=== PATIENT | female | born 1955 | race Caucasian/White ===

== ENCOUNTER 2020-11-14 01:11 | Inpatient (IN) ==
[2020-11-14] MEDS ORDERED: morphine 4 MG/ML VIAL IV ONE (02:03)
[2020-11-14 02:22] LABS: POC Blood Urea Nitrogen 14 mg/dL (6-20); POC CO2 29 mmol/L (22-30); POC Calcium, Ionized 1.19 mmEq/L (1.16-1.32); POC Chloride 98 mEq/L (96-108); POC Creatinine 0.8 mg/dL (0.6-1.2); POC Glucose, Random 139 mg/dL (70-105); POC Hematocrit 24 % (36-48); POC Potassium 3.9 mEql/L (3.3-5.1); POC Sodium 137 mEq/L (133-145)
[2020-11-14] MEDS ORDERED: 0.9 % SODIUM CHLORIDE 1,000 ML IV SCH ×2 (02:30→02:45)
--- NOTE | 2020-11-14 02:36 | Emergency Department Note ---
HPI General Chief complaint: Extremity Injury, Lower Stated complaint: ground level fall Time Seen by Provider: 11/14/20 01:25 Source: patient and EMS Mode of arrival: EMS Limitations: no limitations History of Present Illness HPI Narrative: Narrative: Patient is a 65-year-old female status post right hip arthroplasty last month who presents with chief complaint of fall and leg pain. Patient had a mechanical fall earlier today, landing on her right leg. She denies hitting her head or loss of consciousness. Her primary complaint at this time is just pain and inability to get back up. She had to call EMS to get her off the floor and she was unable to bear weight on her right leg. Otherwise denies any other complaint such as headache, neck pain, numbness or tingling, chest pain, shortness of breath, nausea, vomiting, abdominal pain, changes in bowel movements or urinary symptoms. Related Data Home Medications Medication Instructions Recorded Confirmed insulin lispro [Humalog KwikPen 12 unit SUBCUT DAILY@1230 08/17/20 10/26/20 Insulin] insulin lispro [Humalog KwikPen 20 unit SUB-Q BID@08,1730 08/17/20 10/26/20 Insulin] amitriptyline 50 mg PO DAILY 10/26/20 10/26/20 insulin glargine [Lantus Solostar 42 unit SUBCUT HS 10/26/20 10/26/20 U-100 Insulin] Previous Rx's Medication Instructions Recorded aspirin 81 mg PO BID #60 tab 10/27/20 oxycodone 10 mg PO Q4H PRN #60 tab 10/27/20 atorvastatin 20 mg tablet 20 mg PO QHS #90 tab 11/03/20 gabapentin 600 mg tablet 600 mg PO TID PRN #90 tab 11/03/20 tizanidine 4 mg tablet 4 mg PO Q6HP PRN #60 tab 11/08/20 Allergies Allergy/AdvReac Type Severity Reaction Status Date / Time Erythromycin Base Allergy Intermediate Hives Verified 11/14/20 01:19 [From E-Mycin] Penicillins Allergy Intermediate Hives Verified 11/14/20 01:19 hydrocodone Allergy Mild Rash Verified 11/14/20 01:19 metformin Allergy Mild Hives Verified 11/14/20 01:19 phenazopyridine AdvReac Intermediate Other Verified 11/14/20 01:19 [From Pyridium] lorazepam [From Ativan] AdvReac Mild Agitated Verified 11/14/20 01:19 Zolpidem [From Ambien] AdvReac Mild Agitated Verified 11/14/20 01:19 Review of Systems ROS ROS Narrative: Narrative: All systems ED: reviewed and negative except as stated. [facility] Narrative Patient History Narrative: Narrative: Medical/Surgical/Family History All Active Problems Femur fracture, right (Acute) SI (sacroiliac) joint inflammation (Acute) Right hip pain (Acute) Weight loss (Chronic) Abdominal pain (Chronic) Adenomatous colon polyp (Chronic) Mild chronic gastritis (Chronic) Constipation (Chronic) Hemorrhoids (Chronic) History of colonoscopy (Chronic 12/05/16) Delayed gastric emptying (Chronic) Gastric ulcer (Chronic) History of esophagogastroduodenoscopy (EGD) (Chronic 11/30/16) Non-compliant patient (Chronic) Non compliance w medication regimen (Chronic) Squamous cell carcinoma (Chronic) Actinic keratosis (Chronic) Lumbar disc disease (Chronic) Cervical radiculopathy (Chronic) 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) Back pain (Chronic) Diabetes mellitus (Chronic) OCD (obsessive compulsive disorder) (Chronic) GERD (gastroesophageal reflux disease) (Chronic) Major depressive disorder (Chronic) DDD (degenerative disc disease), lumbar (Chronic) Interstitial cystitis (Chronic) Right hip pain (Chronic) Medication monitoring encounter (Chronic) Expressive language disorder (Chronic) Ptosis, left eyelid (Chronic) Hypertriglyceridemia (Chronic) Essential hypertension (Chronic) Diabetes mellitus with diabetic polyneuropathy (Chronic) Diabetes mellitus type II, uncontrolled (Chronic) Abnormal finding on mammography (Chronic) Chronic hyponatremia (Chronic) Abnormal weight loss (Chronic) Nicotine addiction (Chronic) Kidney stones (Chronic) Left flank pain (Chronic) Microscopic hematuria (Chronic) Medical History Abdominal pain Abnormal finding on mammography Abnormal weight loss Actinic keratosis Adenomatous colon polyp Articular disc disorder of both temporomandibular joints Back pain Cervical radiculopathy Chronic hyponatremia Constipation DDD (degenerative disc disease), lumbar Delayed gastric emptying Diabetes mellitus Diabetes mellitus type II, uncontrolled Diabetes mellitus with diabetic polyneuropathy Essential hypertension Expressive language disorder Gastric ulcer GERD (gastroesophageal reflux disease) Hemorrhoids Hypertriglyceridemia Interstitial cystitis Kidney stones bilateral Left flank pain Lumbar disc disease Major depressive disorder Medication monitoring encounter Microscopic hematuria Mild chronic gastritis Nicotine addiction OCD (obsessive compulsive disorder) Ptosis, left eyelid Right hip pain Squamous cell carcinoma Weight loss Surgical History History of appendectomy History of back surgery 1991 History of bilateral breast reduction surgery History of bladder suspension procedure History of cataract surgery History of section History of colonoscopy (12/05/16) History of esophagogastroduodenoscopy (EGD) (11/30/16) History of hip replacement History of hysterectomy due to benign tumor History of oophorectomy History of shoulder surgery 2009 Status post surgical manipulation of ankle joint 1997 Family History Mother Prescription drug abuse CVA (cerebral vascular accident) Father Esophageal cancer Hypertension Social History Smoking Status: Current every day smoker Alcohol Intake Frequency: holiday/special occasion only Substance Use: does not use Exam Narrative Narrative: Narrative: General Limitations: no limitations Head Head: Present atraumatic and normocephalic Eye Eye: Present normal appearance, PERRL and EOMI; Absent scleral icterus and conjunctival injection ENT ENT: Present normal oropharynx and mucous membranes moist Neck Neck: Present full ROM and trachea midline; Absent tenderness and lymp hadenopathy Chest Chest: Present symmetric chest wall rise Respiratory Respiratory: Present normal lung sounds bilaterally; Absent respiratory distress, rales/crackles, wheezes, stridor and accessory muscle use Cardiovascular Cardiovascular: Present regular rate and normal rhythm; Absent systolic murmur and diastolic murmur Adbominal Abdominal: Present soft; Absent tenderness, guarding, rebound, rigidity and mass Extremities Extremities: Present tenderness, normal capillary refill and other (Significant tenderness to the right thigh/femur area. Improves with rest in the leg back onto the bed. Neurovascular intact distally. Hip and pelvis appear to be s table overall. No knee injury noted.); Absent full ROM, pedal edema, pretibial edema, calf tenderness and cyanosis Back Back: Absent CVA tenderness (R), CVA tenderness (L) and spinous process tenderness Neurological Neurological: Present alert and oriented X3 Psychiatric Psychiatric: Present normal affect and normal mood Skin Skin: Present warm (WNL) and dry Course Vital Signs Vital signs: Vital Signs Temperature 98.0 F 11/14/20 01:12 Pulse Rate 101 H 11/14/20 01:12 Respiratory Rate 16 11/14/20 01:12 Blood Pressure 123/52 11/14/20 01:12 Pulse Oximetry (%) 94 11/14/20 01:12 Temperature 98.0 F 11/14/20 01:12 Pulse Rate 103 H 11/14/20 01:17 Respiratory Rate 16 11/14/20 01:12 Blood Pressure 123/52 11/14/20 01:17 Pulse Oximetry (%) 94 11/14/20 01:17 MDM MDM Narrative Medical decision making narrative: Narrative: Patient is a 65-year-old female presented with chief complaint of fall and leg pain. Unfortunately, does appear the patient has fractured her femur just below her right hip arthroplasty. Vital signs are stable, with her initial tachycardia likely secondary to pain improved with just rest in the emergency department and pain medication. No other significant traumatic injuries were noted, no spinal be to admit for further work-up and management of her femur fracture. I did discuss case with orthopedics, who recommended admission to the hospitalist. I discussed case the hospitalist who agreed to the plan at this time and asked for transition orders. Patient is agreeable to the plan of admission has no further concerns or questions. Lab Data Result diagrams: 11/14/20 02:17 Labs: Lab Results 11/14/20 Range/Units 02:17 POC Hct 24 L (36-48) % POC Sodium 137 (133-145) mEq/L POC Potassium 3.9 (3.3-5.1) mEql/L POC Chloride 98 (96-108) mEq/L POC Total CO2 29 (22-30) mmol/L POC BUN 14 (6-20) mg/dL POC Creatinine 0.8 (0.6-1.2) mg/dL POC Glucose 139 H (70-105) mg/dL POC WB Ioniz Calcium 1.19 (1.16-1.32) mmEq/L ED POC Tests ED POC Tests: [place] - SARS Antigen Negative Discharge Plan Patient/Caregiver Discharge Instructions Pt seen by PMO MANAGER/PA only: No Clinical Impression: Femur fracture, right Patient Disposition: Xfer As Inpt ([facility]) Follow up with: Armas,Mala M, DIRECTOR [employer] [Primary Care Provider] - Prescriptions: No Action atorvastatin 20 mg tablet 20 mg PO QHS Qty: 90 RF: 0 gabapentin 600 mg tablet 600 mg PO TID PRN (Reason: Pain) Qty: 90 RF: 1 tizanidine 4 mg tablet 4 mg PO Q6HP PRN (Reason: muscle spasticity) Qty: 60 RF: 2 insulin lispro [Humalog KwikPen Insulin] 100 unit/mL Insulin Pen 12 unit SUBCUT DAILY@1230 RF: 0 insulin lispro [Humalog KwikPen Insulin] 100 unit/mL insulin pen 20 unit SUB-Q BID@08,1730 RF: 0 amitriptyline 50 mg tablet 50 mg PO DAILY RF: 0 Lantus Solostar U-100 Insulin 100 unit/mL (3 mL) insulin pen 42 unit SUBCUT HS RF: 0 aspirin 81 mg tablet,delayed release (DR/EC) 81 mg PO BID Qty: 60 RF: 0 oxycodone 10 mg tablet 10 mg PO Q4H PRN (Reason: pain) Qty: 60 RF: 0
[2020-11-14] MEDS ORDERED: ONDANSETRON 4 MG/2 ML VIAL IV PRN ×2 (02:37→09:02)
[2020-11-14] MEDS ORDERED: HYDROmorphone 1 MG/ML SYRINGE IV ONE (02:47)
[2020-11-14 03:32] LABS: Basophils # (Auto) 0.06 K/mcL (0.00-0.20); Basophils % (Auto) 0.4 % (0.0-2.0); Eosinophils # (Auto) 0.22 K/mcL (0.00-0.70); Eosinophils % (Auto) 1.5 % (0.0-7.0); Hematocrit 26.6 % (36.0-48.0); Hemoglobin 8.1 g/dL (12.0-15.0); Lymphocytes # (Auto) 1.16 K/mcL (1.50-4.80); Lymphocytes % (Auto) 7.6 % (15.0-49.0); Mean Cell Volume 83.1 fL (80.0-100.0); Mean Corpuscular HGB Conc 30.5 g/dL (31.0-36.0); Monocytes # (Auto) 0.67 K/mcL (0.10-0.90); Monocytes % (Auto) 4.4 % (1.0-12.0); Neutrophils % (Auto) 86.1 % (38.0-78.0); Platelet Count 267 K/mcL (140-440); Red Cell Distribution Width 16.7 % (11.5-14.5); WBC 15.2 K/mcL (4.5-11.0)
[2020-11-14] MEDS: morphine 4 MG/ML VIAL IV PRN ×2 (03:44→07:41)
--- NOTE | 2020-11-14 04:55 | XRay Report ---
CLINICAL INFORMATION: fall COMPARISON: 10/26/2020 FINDINGS: Bilateral hip prostheses are anatomically aligned. No evidence of loosening or infection. An oblique fracture of the proximal femoral diaphysis, in the region of the femoral stem, is appreciated. No significant angulation deformity. Stomach is incompletely included on the film but appears markedly dilated. IMPRESSION: Oblique displaced fracture of the proximal femoral diaphysis at the level of the prosthetic femoral stem Marked gastric dilatation. Interpreted and Authenticated by: Yan Cody 11/14/20
--- NOTE | 2020-11-14 04:57 | XRay Report ---
CLINICAL INFORMATION: fall COMPARISON: None. FINDINGS: Spiral fracture of the proximal femoral diaphysis, at the level of the prosthetic femoral stem, is appreciated. The distal fragment is displaced laterally 2 cm and anteriorly 1.6 cm. No significant angulation deformity. Right hip prostheses is anatomically aligned. Moderate patellofemoral and tibiofemoral degenerative change. Soft tissue swelling in the upper thigh appreciated. IMPRESSION: Spiral displaced fracture of the distal femoral diaphysis Moderate patellofemoral and tibiofemoral degeneration Interpreted and Authenticated by: Yan Cody 11/14/20
[2020-11-14] MEDS ORDERED: 0.9 % SODIUM CHLORIDE 10 ML SYRINGE IV SCH (06:00)
[2020-11-14] MEDS ORDERED: tiZANidine 4 MG TABLET PO PRN (08:20)
--- NOTE | 2020-11-14 08:36 | Internal Med History&Physical ---
HPI History of Present Illness Patient information: Note initiated : 11/14/20 at 8:27 am Service Date, if different from initiated Date: [] Patient: Masha Berger a 65 y/o F admitted on 11/14/20 for ground level fall. Chief Complaint: [Fall with hip fracture ] History of present illness: Ms. Berger is a 65 year old F with type 2 diabetes mellitus, insulin-dependent, mixed dyslipidemia, recent right hip fracture status post ORIF, presenting with fall and refracturing of her right femur. Patient had an episode for 2 and half weeks ago status post right hip/femur ORIF. She was doing well after the surgery until last night when she sustained another fall at home when she was walking and all of a sudden her legs just gave out. She denies any loss of consciousness. She was taken back to our hospital ED and x-ray of the hip and right leg shows displaced fracture of the right femoral diaphysis at the level of the prosthetic femoral stem. She is currently complaining of 10 out of 10, constant, sharp pain localized in her right lateral thigh. Denies any shortness of breath or chest pain. Denies any lethargy or confusions. Constitutional Constitutional: Absent chills, excessive sweating, fatigue, fever(s) and weakness EENT Eyes: Absent blurry vision, change in vision, loss of vision and other visual disturbances Ears: Absent decreased hearing and tinnitus Nose, mouth and throat: Absent abnormal hearing, dry mouth, headache(s), nasal congestion and sore throat Cardiovascular Cardiovascular: Absent chest pain, chest pain at rest, edema, irregular heart rhythm and palpatations Respiratory Respiratory: Absent cough, dyspnea and wheezing Gastrointestinal Gastrointestinal: Absent abdominal pain, constipation, diarrhea, nausea and vomiting Musculoskeletal Musculoskeletal: Present limited range of motion; Absent back pain, deformity, muscle cramps, muscle weakness and numbness Additional comments: Right lateral thigh pain Active and passive range of motion's of the right leg limited by pain Integumentary Integumentary: Absent lesions, rash and wounds Neurological Neurological: Absent focal weakness, headache(s) and numbness Psychiatric Psychiatric: Absent anxiety, depression and hallucinations PFSH PFSH All Active Problems (Updated 11/14/20 @ 08:32 by Scot Tipton MD) Hypochromic anemia (Acute) Femur fracture, right (Acute) SI (sacroiliac) joint inflammation (Acute) Right hip pain (Acute) Weight loss (Chronic) Abdominal pain (Chronic) Adenomatous colon polyp (Chronic) Mild chronic gastritis (Chronic) Constipation (Chronic) Hemorrhoids (Chronic) History of colonoscopy (Chronic 12/05/16) Delayed gastric emptying (Chronic) Gastric ulcer (Chronic) History of esophagogastroduodenoscopy (EGD) (Chronic 11/30/16) Non-compliant patient (Chronic) Non compliance w medication regimen (Chronic) Squamous cell carcinoma (Chronic) Actinic keratosis (Chronic) Lumbar disc disease (Chronic) Cervical radiculopathy (Chronic) 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) Back pain (Chronic) Diabetes mellitus (Chronic) OCD (obsessive compulsive disorder) (Chronic) GERD (gastroesophageal reflux disease) (Chronic) Major depressive disorder (Chronic) DDD (degenerative disc disease), lumbar (Chronic) Interstitial cystitis (Chronic) Right hip pain (Chronic) Medication monitoring encounter (Chronic) Expressive language disorder (Chronic) Ptosis, left eyelid (Chronic) Hypertriglyceridemia (Chronic) Essential hypertension (Chronic) Diabetes mellitus with diabetic polyneuropathy (Chronic) Diabetes mellitus type II, uncontrolled (Chronic) Abnormal finding on mammography (Chronic) Chronic hyponatremia (Chronic) Abnormal weight loss (Chronic) Nicotine addiction (Chronic) Kidney stones (Chronic) Left flank pain (Chronic) Microscopic hematuria (Chronic) Medical History (Updated 11/14/20 @ 08:32 by Scot Tipton MD) Abdominal pain Abnormal finding on mammography Abnormal weight loss Actinic keratosis Adenomatous colon polyp Articular disc disorder of both temporomandibular joints Back pain Cervical radiculopathy Chronic hyponatremia Constipation DDD (degenerative disc disease), lumbar Delayed gastric emptying Diabetes mellitus Diabetes mellitus type II, uncontrolled Diabetes mellitus with diabetic polyneuropathy Essential hypertension Expressive language disorder Gastric ulcer GERD (gastroesophageal reflux disease) Hemorrhoids Hypertriglyceridemia Interstitial cystitis Kidney stones bilateral Left flank pain Lumbar disc disease Major depressive disorder Medication monitoring encounter Microscopic hematuria Mild chronic gastritis Nicotine addiction OCD (obsessive compulsive disorder) Ptosis, left eyelid Right hip pain Squamous cell carcinoma Weight loss Surgical History History of appendectomy History of back surgery 1992 History of bilateral breast reduction surgery History of bladder suspension procedure History of cataract surgery History of section History of colonoscopy (12/05/16) History of esophagogastroduodenoscopy (EGD) (11/30/16) History of hip replacement History of hysterectomy due to benign tumor History of oophorectomy History of shoulder surgery 2009 Status post surgical manipulation of ankle joint 1997 Family History Mother Prescription drug abuse CVA (cerebral vascular accident) Father Esophageal cancer Hypertension Social History marital status: occupational status: disabled physical activity: none alcohol intake frequency: holiday/special occasion only substance use type: does not use MEDS/ALLERGIES Home Medications and Allergies Home Medications Medication Instructions Recorded Confirmed Type insulin lispro [Humalog KwikPen 12 unit SUBCUT DAILY@1230 08/17/20 11/14/20 Hi story Insulin] insulin lispro [Humalog KwikPen 20 unit SUB-Q BID@08,1730 08/17/20 11/14/20 History Insulin] amitriptyline 50 mg PO DAILY 10/26/20 11/14/20 History insulin glargine [Lantus Solostar 42 unit SUBCUT DAILY 10/26/20 11/14/20 History U-100 Insulin] aspirin 81 mg PO BID #60 tab 10/27/20 11/14/20 Rx oxycodone 10 mg PO Q4H PRN #60 tab 10/27/20 11/14/20 Rx atorvastatin 20 mg tablet 20 mg PO QHS #90 tab 11/03/20 11/14/20 Rx tizanidine 4 mg tablet 4 mg PO Q6HP PRN #60 tab 11/08/20 11/14/20 Rx gabapentin 1,200 mg PO TID PRN 11/14/20 11/14/20 History Allergies Allergy/AdvReac Type Severity Reaction Status Date / Time Erythromycin Base Allergy Intermediate Hives Verified 11/14/20 01:19 [From E-Mycin] Penicillins Allergy Intermediate Hives Verified 11/14/20 01:19 hydrocodone Allergy Mild Rash Verified 11/14/20 01:19 metformin Allergy Mild Hives Verified 11/14/20 01:19 phenazopyridine AdvReac Intermediate Other Verified 11/14/20 01:19 [From Pyridium] lorazepam [From Ativan] AdvReac Mild Agitated Verified 11/14/20 01:19 Zolpidem [From Ambien] AdvReac Mild Agitated Verified 11/14/20 01:19 EXAM Constitutional Vitals: Temp Pulse Resp BP Pulse Ox 36.8 C 98 H 20 108/62 93 11/14/20 07:43 11/14/20 07:43 11/14/20 07:43 11/14/20 07:43 11/14/20 07:43 General appearance: cooperative and no acute distress Head Head exam: Present atraumatic and normocephalic Eye Eye exam: Present EOMI and PERRL ENT ENT exam: Present mucous membranes moist, normal exam and normal external ear exam Neck Neck exam: Present normal inspection; Absent lymphadenopathy, tenderness and thyromegaly Respiratory Respiratory exam: Absent accessory muscle use, respiratory distress and wheezes Cardiovascular Cardiovascular exam: Present normal rate and rhythm; Absent JVD GI/Abdominal GI/Abdominal exam: Present normal bowel sounds and soft; Absent organomegaly and tenderness Extremities Exam Extremities exam: Present normal capillary refill and tenderness; Absent full ROM and normal inspection Additional comments: Right lateral side with surgical incisions, well-healed with Band-Aids in place. Tenderness to palpations of the right lateral hip. Active and passive range of motion limited by pain. Neurological Exam Neurological exam: Present alert, CN II-XII intact and oriented X3; Absent motor sensory deficit Psychiatric Psychiatric exam: Present normal affect and normal mood; Absent anxious and depressed Skin Skin exam: Present dry and intact DATA Data Completed and Pending Labs: Labs from last 24 hours 11/14/20 11/14/20 11/14/20 04:30 02:17 02:17 WBC 15.2 H RBC 3.20 L Hgb 8.1 L Hct 26.6 L POC Hct 24 L MCV 83.1 MCH 25.3 L MCHC 30.5 L RDW 16.7 H Plt Count 267 MPV 9.0 Neut % (Auto) 86.1 H Lymph % (Auto) 7.6 L [place] % (Auto) 4.4 Eos % (Auto) 1.5 Baso % (Auto) 0.4 Lymph # (Auto) 1.16 L [place] # (Auto) 0.67 Eos # (Auto) 0.22 Baso # (Auto) 0.06 Absolute Neutrophils 13.06 H POC Sodium 137 POC Potassium 3.9 POC Chloride 98 POC Total CO2 29 POC BUN 14 POC Creatinine 0.8 POC Glucose 139 H POC WB Ioniz Calcium 1.19 Urine Color Pending Urine Appearance Pending Urine pH Pending Ur Specific [place] Pending Urine Protein Pending Urine Glucose (UA) Pending Urine Ketones Pending Urine Occult Blood Pending Urine Nitrate Pending Urine Bilirubin Pending Urine Urobilinogen Pending Ur Leukocyte Esterase Pending A/P Assessment and plan (1) Femur fracture, right: Status: Acute (2) Hypertriglyceridemia: Status: Chronic (3) Diabetes mellitus with diabetic polyneuropathy: Status: Chronic Qualifiers: Diabetes mellitus type: 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 Fall with right femur re-fracture around the prosthetic site: Admit to inpatient med surg Orthopedic surgeon consulted NPO [id number]@100cc/hr Bed rest Dilaudid 1mg IV q2hr PRN severe pain Physical therapy evaluation and treatment Occupational therapy evaluation and treatment 2. T2DM: HgA1c Hold any oral hypoglycemics Hold any scheduled insulin given NPO status Correctional scale insulin q6hr Accu Chek q6hr Hypoglycemia protocol NPO [id number]@100cc/hr 3. Mixed dyslipidemia: Continue statin therapy 4. Hypochromic anemia: cbc w/ auto diff in AM to trend H/H, transfuse pRBC if hemoglobin <7.0, active bleeding, or symptomatic GI ppx: not currently indicated DVT ppx: SCDs Code status: Full Prognosis: stable Disposition: inpatient med surg Time Spent With Patient Time: Total time spent is greater than 50% in coordination of care (as documented) at patient's floor/unit and/or counseling patient: Total time spent with greater than 50% in coordination of care (as documented) at patient's floor/unit and/or counseling patient:: 15 - 24 minutes QUALITY Stroke Symptom Onset Unknown: No VTE Deep Vein Thrombosis/Pulmonary Embolism Present on Admission: No
[2020-11-14] MEDS ORDERED: AMITRIPTYLINE 25 MG TABLET PO SCH (09:00)
[2020-11-14] MEDS ORDERED: DEXTROSE 50% 50 ML VIAL IV PRN (09:02)
[2020-11-14] MEDS ORDERED: DEXTROSE 31 GM ORAL.SUSP PO PRN (09:02)
[2020-11-14] MEDS: DEXTROSE 5%-LR 1,000 ML IV SCH ×2 (09:12→18:59)
[2020-11-14] MEDS: HYDROmorphone 1 MG/ML SYRINGE IV PRN ×5 (09:13→18:42)
[2020-11-14] MEDS: DOCUSATE SODIUM 100 MG CAPSULE PO SCH ×2 (09:16→20:46)
[2020-11-14] MEDS: INSULIN LISPRO 1 UNIT/0.01 ML UNIT SQ SCH ×2 (11:39→17:25)
[2020-11-14] MEDS: 0.9 % SODIUM CHLORIDE 10 ML SYRINGE IV SCH ×4 (14:00→20:51)
[2020-11-14] MEDS ORDERED: HYDROmorphone 1 MG/ML SYRINGE IV PRN (19:04)
[2020-11-14] MEDS ORDERED: ORTHO PREOP PAIN ORDER PER RX PO SCH (19:15)
[2020-11-14] MEDS ORDERED: TEMAZEPAM 15 MG CAPSULE PO PRN (20:10)
[2020-11-14] MEDS ORDERED: KETOROLAC 15 MG/ML VIAL IV PRN (20:10)
[2020-11-14] MEDS ORDERED: ceFAZolin 2 GM in DEXTROSE 5% IN WATER 50 ML IV ONE (20:35)
[2020-11-14] MEDS: oxyCODONE HCL 5 MG TABLET PO PRN (20:45)
[2020-11-14] MEDS: ATORVASTATIN 20 MG TABLET PO SCH (20:46)
[2020-11-14] MEDS: SENNOSIDES 1 TABLET PO SCH (20:46)
[2020-11-14] MEDS: ONDANSETRON 4 MG/2 ML VIAL IV PRN (20:50)
[2020-11-14] MEDS ORDERED: ceFAZolin 1 GM VIAL IV ONE (21:00)
[2020-11-14] MEDS ORDERED: ATORVASTATIN 20 MG TABLET PO SCH (21:00)
[2020-11-14] MEDS ORDERED: PROMETHAZINE 25 MG/ML VIAL IV PRN (23:15)
[2020-11-14] MEDS ORDERED: PROMETHAZINE 25 MG/ML VIAL ONE (23:19)
[2020-11-15] MEDS ORDERED: PANTOPRAZOLE 40 MG VIAL IV ONE ×2 (00:35→00:39)
[2020-11-15] MEDS: INSULIN LISPRO 1 UNIT/0.01 ML UNIT SQ SCH ×6 (00:45→23:53)
[2020-11-15] MEDS: HYDROmorphone 1 MG/ML SYRINGE IV PRN ×5 (00:47→21:58)
[2020-11-15 01:30] LABS: Hematocrit 19.4 % (36.0-48.0); Hemoglobin 7.9 g/dL (12.0-15.0)
--- NOTE | 2020-11-15 02:43 | XRay Report ---
CLINICAL INFORMATION: abd distention/ NG tube placement COMPARISON: 09/10/2017 FINDINGS: NG tube is in the proximal gastric body. Stomach is markedly dilated with mild small bowel dilatation. Colon is incompletely imaged. Unremarkable. No free air or soft tissue mass IMPRESSION: NG tube overlying the proximal gastric body. Marked gastric dilatation. Mild ileus Interpreted and Authenticated by: Yan Cody 11/15/20
[2020-11-15] MEDS: DEXTROSE 5%-LR 1,000 ML IV SCH ×2 (05:15→16:19)
[2020-11-15] MEDS: 0.9 % SODIUM CHLORIDE 10 ML SYRINGE IV SCH ×5 (05:22→21:53)
[2020-11-15] MEDS ORDERED: ceFAZolin 2 GM in DEXTROSE 5% IN WATER 50 ML IV SCH (06:00)
[2020-11-15 07:54] LABS: Blood Urea Nitrogen 13 mg/dL (8-23); Calcium 8.6 mg/dL (8.6-10.4); Carbon Dioxide 34 mmol/L (22-30); Chloride 99 mmol/L (96-108); Glomerular Filtration Rate 76; Glucose 170 mg/dL (70-105)
[2020-11-15] MEDS ORDERED: 0.9 % SODIUM CHLORIDE 250 ML IV SCH ×2 (08:00→08:45)
[2020-11-15 08:07] LABS: Basophils # (Auto) 0.05 K/mcL (0.00-0.20); Basophils % (Auto) 0.6 % (0.0-2.0); Eosinophils # (Auto) 0.05 K/mcL (0.00-0.70); Eosinophils % (Auto) 0.6 % (0.0-7.0); Hematocrit 25.2 % (36.0-48.0); Hemoglobin 7.4 g/dL (12.0-15.0); Lymphocytes # (Auto) 1.16 K/mcL (1.50-4.80); Lymphocytes % (Auto) 12.9 % (15.0-49.0); Mean Cell Volume 84.6 fL (80.0-100.0); Mean Corpuscular HGB Conc 29.4 g/dL (31.0-36.0); Mean Platelet Volume 8.8 fL (7.4-10.4); Monocytes # (Auto) 0.47 K/mcL (0.10-0.90); Monocytes % (Auto) 5.2 % (1.0-12.0); Neutrophils % (Auto) 80.7 % (38.0-78.0); Platelet Count 320 K/mcL (140-440); RBC 2.98 M/mcL (4.00-5.20); Red Cell Distribution Width 16.9 % (11.5-14.5)
[2020-11-15] MEDS: LORazepam 2 MG/ML VIAL IV PRN ×2 (08:45→21:24)
[2020-11-15] MEDS ORDERED: VANCOMYCIN 1,500 MG in 0.9 % SODIUM CHLORIDE 500 ML IV SCH (09:15)
--- NOTE | 2020-11-15 10:12 | Internal Med Progress Note ---
SUBJECTIVE Subjective Patient information: Note initiated : 11/15/20 at 10:07 am Service Date, if different from initiated Date: [] Patient: Masha Berger a 65 y/o F admitted on 11/14/20 for ground level fall. Chief Complaint: [] Interval history: Ms. Berger is a 65 year old F with type 2 diabetes mellitus, insulin-dependent, mixed dyslipidemia, recent right hip fracture status post ORIF, presenting with fall and refracturing of her right femur. Patient had an episode for 2 and half weeks ago status post right hip/femur ORIF. She was doing well after the surgery until last night when she sustained another fall at home when she was walking and all of a sudden her legs just gave out. She denies any loss of consciousness. She was taken back to our hospital ED and x- ray of the hip and right leg shows displaced fracture of the right femoral diaphysis at the level of the prosthetic femoral stem. She is currently complaining of 10 out of 10, constant, sharp pain localized in her right lateral thigh. Denies any shortness of breath or chest pain. Denies any lethargy or confusions. 5/4-overnight distended abdomen with multiple episodes of emesis. NG tube placed with over 2000 cc bilious output. Abdominal imaging reveals ileus pat tern. Hemoglobin down to 7.9. Started on PPI due to blood-tinged gastric aspirate. Surgery today. Repeat hemoglobin down to 7.4. 2 units PRBC transfusion ordered. Will review postop. Family at bedside. Discussed plan of treatment. Constitutional Vitals: Vital Signs Temp Pulse Resp BP Pulse Ox 98.2 F 100 H 20 139/75 88 L 11/15/20 08:00 11/15/20 08:00 11/15/20 08:00 11/15/20 08:00 11/15/20 08:00 Period Temp Pulse Resp BP Sys/Persaud Pulse Ox Last 24 Hr 97.9 F-98.6 F 87-104 12-20 104-139/48-75 88-93 Intake and Output 11/14/20 11/15/20 11/15/20 21:59 05:59 13:59 Intake Total 1333 1050 Output Total 750 2725 Balance 583 -1675 Weight 89.539 kg NG tube in place, anxious Nondistended abdomen Right hip pain at surgery site Nonlabored breathing Intake & Output: Intake & Output 11/14/20 11/15/20 11/15/20 21:59 05:59 13:59 Intake Total 1333 1050 Output Total 750 2725 Balance 583 -1675 Weight 89.539 kg Intake: IV 1333 1000 Sodium Chloride 0.9% 1,000 ml @ 355 20 mls/hr IV .Q24H [facility] Rx#: [id number] Dextrose 5%-Lactated Ringers 1, 978 1000 000 ml @ 100 mls/hr IV .Q10H [facility] Rx#:[id number] Oral 50 Tube Feeding 0 Output: Gastric Drainage 1875 Left Nare 1875 Urine Catheter Amount 700 375 Emesis 50 475 Other: Meal Dinner Percent of Meal Consumed 50% Feeding Ability Independent Urine Appearance Clear Clear Uretheral (Petit) Clear Urine Color Bright Yellow Dark Yellow Uretheral (Petit) Bright Yellow Urine Odor Normal Uretheral (Petit) Normal # Emeses 1 OBJ DATA Labs CBC & Chem 7: 11/15/20 06:24 11/15/20 06:24 Labs: Abnormal Lab Results 11/15/20 11/15/20 11/15/20 06:24 06:24 00:49 WBC RBC 2.98 L Hgb 7.4 L 7.9 L Hct 25.2 L 19.4 L* POC Hct MCH 24.8 L MCHC 29.4 L RDW 16.9 H Neut % (Auto) 80.7 H Lymph % (Auto) 12.9 L Lymph # (Auto) 1.16 L Absolute Neutrophils Carbon Dioxide 34 H Anion Gap 7.0 L Glucose 170 H POC Glucose 11/14/20 11/14/20 02:17 02:17 WBC 15.2 H RBC 3.20 L Hgb 8.1 L Hct 26.6 L POC Hct 24 L MCH 25.3 L MCHC 30.5 L RDW 16.7 H Neut % (Auto) 86.1 H Lymph % (Auto) 7.6 L Lymph # (Auto) 1.16 L Absolute Neutrophils 13.06 H Carbon Dioxide Anion Gap Glucose POC Glucose 139 H Meds: Medications Acetaminophen (Acetaminophen 325 Mg Tablet) 650 mg PO Q6HP PRN; Protocol PRN Reason: Per Pain Protocol/Fever > 101 Amitriptyline HCl (Amitriptyline 25 Mg Tablet) 50 mg PO DAILY [facility] Atorvastatin Calcium (Atorvastatin 20 Mg Tablet) 20 mg PO QHS [facility] Last Admin: 11/14/20 20:46 Dose: 20 mg Documented by: Dextrose (Dextrose 50% 50 Ml Vial) 0 ml IV UD PRN PRN Reason: Hypoglycemia Diagnostic Test (Pha) (Accu-Chek 1 Each Strip) 1 each FS Q6 [facility] Last Admin: 11/15/20 05:55 Dose: 1 each Documented by: Docusate Sodium (Docusate Sodium 100 Mg Capsule) 100 mg PO BID [facility] Last Admin: 11/14/20 20:46 Dose: 100 mg Documented by: Glucose (Dextrose 31 Gm Oral.Susp) 15 gm PO PRN PRN PRN Reason: Hypoglycemia Hydromorphone HCl (Hydromorphone 1 Mg/Ml Syringe) 1 mg IV Q2HP PRN; Protocol PRN Reason: Per Pain Protocol Last Admin: 11/15/20 09:20 Dose: 1 mg Documented by: Hydromorphone HCl (Hydromorphone 1 Mg/Ml Syringe) 2 mg IV Q2HP PRN; Protocol PRN Reason: Per Pain Protocol Last Admin: 11/15/20 05:17 Dose: 2 mg Documented by: Dextrose/Lactated Ringer's (Dextrose 5%-Lactated Ringers) 1,000 mls @ 100 mls/hr IV .Q10H [facility] Last Admin: 11/15/20 05:15 Dose: 100 mls/hr Documented by: Cefazolin Sodium 2 gm/ (Dextrose) 50 mls @ 100 mls/hr IV PREOP [facility]; Protocol Stop: 11/15/20 15:00 Sodium Chloride (Sodium Chloride 0.9%) 250 mls @ 20 mls/hr IV .[id number] [facility] Stop: 11/15/20 20:29 Last Admin: 11/15/20 09:23 Dose: 20 mls/hr Documented by: Sodium Chloride (Sodium Chloride 0.9%) 250 mls @ 20 mls/hr IV .[id number] [facility] Stop: 11/15/20 21:14 Vancomycin HCl 1,500 mg/ (Sodium Chloride) 500 mls @ 333.3 mls/hr IV PREOP [facility]; Protocol Stop: 11/15/20 10:46 Insulin Human Lispro (Insulin Lispro 1 Unit/0.01 Ml Unit) 0 unit SQ Q6 [facility]; Protocol Last Admin: 11/15/20 05:57 Dose: Not Given Documented by: Ketorolac Tromethamine (Ketorolac 15 Mg/Ml Vial) 15 mg IV Q6HP PRN PRN Reason: Per Pain Protocol Stop: 11/16/20 20:10 Last Admin: 11/14/20 20:44 Dose: 15 mg Documented by: Lorazepam (Lorazepam 2 Mg/Ml Vial) 0.5 mg IV Q6HP PRN PRN Reason: ANXIETY/SEDATION Last Admin: 11/15/20 08:45 Dose: 0.5 mg Documented by: Ondansetron HCl (Ondansetron 4 Mg/2 Ml Vial) 4 mg IV Q6HP PRN PRN Reason: Nausea And Vomiting Last Admin: 11/14/20 20:50 Dose: 4 mg Documented by: Oxycodone HCl (Oxycodone Hcl 5 Mg Tablet) 5 mg PO Q4HP PRN; Protocol PRN Reason: Per Pain Protocol Last Admin: 11/14/20 20:45 Dose: 5 mg Documented by: Pantoprazole Sodium (Pantoprazole 40 Mg Tablet) 40 mg PO BIDAC [facility] Promethazine HCl (Promethazine 25 Mg/Ml Vial) 12.5 mg IV Q6HP PRN PRN Reason: Nausea And Vomiting Last Admin: 11/14/20 23:20 Dose: 12.5 mg Documented by: Senna (Sennosides 1 Tablet) 2 tab PO HS [facility] Last Admin: 11/14/20 20:46 Dose: 2 tab Documented by: Sodium Chloride (0.9 % Sodium Chloride 10 Ml Syringe) 10 ml IV Q8 [facility] Last Admin: 11/15/20 05:22 Dose: Not Given Documented by: Sodium Chloride (0.9 % Sodium Chloride 10 Ml Syringe) 10 ml IV Q8 [facility] Last Admin: 11/15/20 05:23 Dose: Not Given Documented by: Temazepam (Temazepam 15 Mg Capsule) 15 mg PO HSP PRN PRN Reason: Insomnia Last Admin: 11/14/20 22:04 Dose: 15 mg Documented by: Tizanidine HCl (Tizanidine 4 Mg Tablet) 4 mg PO Q6HP PRN PRN Reason: muscle spasticity Trazodone HCl (Trazodone Hcl 50 Mg Tablet) 50 mg PO HSP PRN PRN Reason: Insomnia A/P Narrative A/P Narrative: * Right femur fracture/fall-operative intervention today, pain management per orthopedics * Ileus/recurrent nausea currently n.p.o./NG tube decompression * Preop risk evaluation * Blood loss anemia-treated PRBC/IV PPI. Recommend outpatient GI follow-up for upper endoscopy if bleeding resolves. Else inpatient GI consult * Type II DM continue sliding scale insulin, CCD post op * Hyperlipidemia on statin * History of chronic pain continue prior home medications postop * Prophylaxis SCDs * Full code Plan * Review postop * PRBC transfusion * IV PPI * Pre-existing medical condition management home medications * Postop care per orthopedics * Early mobilization * DVT prophylaxis * Case management coordinate SNF transfer Time Spent With Patient Time: Total time spent is greater than 50% in coordination of care (as documented) at patient's floor/unit and/or counseling patient: QUALITY Stroke Symptom Onset Unknown: No VTE Deep Vein Thrombosis/Pulmonary Embolism Present on Admission: No
[2020-11-15] MEDS: AMITRIPTYLINE 25 MG TABLET PO SCH (10:18)
[2020-11-15] MEDS: DOCUSATE SODIUM 100 MG CAPSULE PO SCH ×2 (10:18→21:36)
--- NOTE | 2020-11-15 10:22 | Consultation ---
DATE OF CONSULTATION: 11/14/2020 CHIEF COMPLAINT: Right periprosthetic fracture. HISTORY OF PRESENT ILLNESS: The patient is a 65-year-old patient, who had a fall injuring the right leg. Immediate pain, swelling, and deformity were encountered. The patient was seen in the emergency room where she was appropriately diagnosed with a periprosthetic fracture. She is about 3 weeks out from a total hip arthroplasty. She was doing well up until that time. She does have neuropathy and multiple other health problems. The patient is a 65-year-old female on early 11/14, today, she fell and injured the leg. She is a type 2 diabetic, insulin-dependent. She has been unable to move the leg without severe pain. REVIEW OF SYSTEMS: Constitutional symptoms, she denies chills, fever, no nausea, but severe pain is her main complaint. Other review of systems, vision is unchanged, though her vision is not good. Cardiovascular exam, she has no chest pain or shortness of breath today. She does have peripheral neuropathy as a constant problem. She does not note any weakness or headaches. PAST MEDICAL HISTORY: Her medical problems are quite extensive. These include anemia; right hip fracture; sacroiliac inflammation; right ankle pain; weight loss, which is chronic; abdominal pain chronic in nature; constipation. She has had lumbar disk disease, squamous cell carcinoma, delayed gastric emptying, gastric ulcers, reflux, obsessive compulsive disorder, major depressive disorder, degenerative joint disease, chronic narcotic use because of chronic pain, type 2 diabetic, and nicotine addiction, chronic . PAST SURGICAL HISTORY: She has had multiple surgical history include appendectomy, back surgery in 1991, breast reduction surgery, colonoscopy in 2016, hip replacement more recently, hysterectomy, shoulder surgery in 2008, surgical manipulation of an ankle joint in 1997. FAMILY HISTORY: CVA with the mother. Father, esophageal cancer and hypertension. SOCIAL HISTORY: She is . Occupational status, disabled. Physical activity minimal. Alcohol intake only infrequently, holidays. Substance use, she does smoke. ALLERGIES: IT IS QUITE EXTENSIVE. HER ALLERGIES INCLUDE WHICH SHE LIST HYDROCODONE, METFORMIN, LORAZEPAM, ERYTHROMYCIN, PENICILLIN. MOST OF THESE ARE REACTIONS, NOT TRUE ALLERGIES. MEDICATIONS: Include insulin 42 units subcutaneous daily, amitriptyline 50 mg p.o. every day, aspirin 81 mg p.o. day, oxycodone 10 mg every 4 hours #60 tablets that she has been given, atorvastatin 20 mg at nighttime, ____ 4 mg p.o. every 6 hours, gabapentin 1200 mg p.o. t.i.d. PHYSICAL EXAMINATION: GENERAL: Alert, cooperative, in quite a bit of pain, somewhat tearful. HEENT: Normocephalic, atraumatic. Eyes are equal. ENT clear without respiratory distress. NECK: Supple and nontender. RESPIRATORY: A little tachycardic at 12, but able to take a deep breath. CARDIOVASCULAR: Regular rate, tachycardic rate, with increased JVD. GASTROINTESTINAL: Abdomen is soft, nontender. EXTREMITIES: Has a right leg shortened, flexed at 45 degrees with external rotation, seems to be the most comfortable position for the patient with brisk capillary refill into the foot. She has peripheral neuropathy, which is decreased globally in both feet. NEUROLOGIC: Her cranial nerves are intact. She is alert and oriented x3. Mood and affect appropriate. She is in good spirits overall for the pain that she has been in. No open wounds around the hip and a prior scar that is well healed on the right hip. LABORATORY DATA: Obtained in the emergency room, which include white cell count of 15.2, most likely from the stress. She is anemic with a hematocrit of 26.4. Her x-rays of the right femur demonstrate a periprosthetic femur fracture with a well-positioned total hip in place. I talked with Dr. Sullivan, he is willing to do the case as this was clearly new that he might be able to remove the stem and place another stem that would bypass the fracture. He has met with the patient, and she agrees with the plan. I have ordered for pain medication for tonight and help her get by until he assumes all care. RB:[email or web address] Job ID: [id number] Doc ID: [id number] Neptali Antunez MD
[2020-11-15] MEDS ORDERED: VASOPRESSIN 20 UNIT/ML VIAL ONE (10:30)
[2020-11-15] MEDS ORDERED: ONDANSETRON 4 MG/2 ML VIAL ONE (10:30)
[2020-11-15] MEDS ORDERED: fentaNYL 100 MCG/2 ML VIAL IV ONE (10:30)
[2020-11-15] MEDS ORDERED: DEXAMETHASONE 10 MG/ML VIAL ONE (10:30)
[2020-11-15] MEDS ORDERED: KETAMINE 50 MG/ML ML ONE (10:30)
[2020-11-15] MEDS ORDERED: HYDROmorphone 1 MG/ML SYRINGE ONE (10:30)
[2020-11-15] MEDS ORDERED: GLYCOPYRROLATE 0.2 MG/ML VIAL IV ONE (10:30)
[2020-11-15] MEDS ORDERED: PROPOFOL 200 MG/20 ML VIAL IV ONE (10:30)
[2020-11-15] MEDS ORDERED: ROCURONIUM 10 MG/ML ML IV ONE (10:30)
[2020-11-15] MEDS ORDERED: LIDOCAINE HCL/PF 100 MG/5 ML SYRINGE IV ONE (10:30)
[2020-11-15] MEDS ORDERED: PHENYLEPHRINE 10 MG/ML VIAL ONE (10:30)
[2020-11-15] MEDS ORDERED: MIDAZOLAM 2 MG/2 ML VIAL ONE (10:30)
[2020-11-15] MEDS ORDERED: SUGAMMADEX SODIUM 200 MG/2 ML VIAL IV ONE (10:30)
[2020-11-15] MEDS ORDERED: POLYETHYLENE GLYCOL 3350 17 GM PACKET PO PRN (13:18)
[2020-11-15] MEDS ORDERED: MAGNESIUM HYDROXIDE 30 ML ORAL.SUSP PO PRN (13:18)
[2020-11-15] MEDS ORDERED: BISACODYL 10 MG SUPP.RECT PR PRN (13:18)
[2020-11-15] MEDS ORDERED: morphine 4 MG/ML VIAL IV PRN (13:18)
[2020-11-15] MEDS ORDERED: BENZOCAINE/MENTHOL 1 LOZENGE PO PRN ×2 (13:18→13:56)
[2020-11-15] MEDS ORDERED: FLEETS ADULT ENEMA PR PRN (13:18)
--- NOTE | 2020-11-15 13:18 | Brief Operative Note ---
Brief Operative Note Date of procedure: 11/15/20 Pre-op diagnosis: Right periprosthetic femur fracture Procedure: Open treatment internal fixation of right periprosthetic femur fracture Grafts/Implants: Yes (Armas nephew accord proximal femur cable plate) Findings: stable femoral stem, Complications: none Surgeon: Ben Sullivan Slot Floorman: Brien Gandhi Estimated blood loss (cc): 500 Specimens Removed/Pathology: none sent Condition: stable Disposition: PACU
[2020-11-15] MEDS ORDERED: oxyCODONE/APAP 5/325MG TABLET PO PRN (13:23)
[2020-11-15] MEDS ORDERED: 0.9 % SODIUM CHLORIDE 1,000 ML IV SCH (13:30)
[2020-11-15] MEDS ORDERED: METHOCARBAMOL 1,000 MG/10 ML VIAL IV PRN (13:56)
[2020-11-15] MEDS ORDERED: LACTATED RINGERS 250 ML IV PRN (13:56)
[2020-11-15] MEDS ORDERED: LABETALOL 5 MG/ML ML IV PRN (13:56)
[2020-11-15] MEDS ORDERED: ONDANSETRON 4 MG/2 ML VIAL IV PRN (13:56)
[2020-11-15] MEDS ORDERED: ACETAMINOPHEN 1,000 MG/100 ML BAG IV ONE (13:56)
[2020-11-15] MEDS ORDERED: HYDROmorphone 0.5 MG/0.5 ML SYRINGE IV PRN (13:56)
[2020-11-15] MEDS ORDERED: FLUMAZENIL 0.1 MG/ML ML IV PRN (13:56)
[2020-11-15] MEDS ORDERED: IPRATROPIUM/ALBUTEROL 3 ML AMPUL.NEB NEB PRN (13:56)
[2020-11-15] MEDS ORDERED: NALOXONE HCL 0.4 MG/ML VIAL IV PRN (13:56)
[2020-11-15] MEDS ORDERED: METOPROLOL TARTRATE 5 MG/5 ML VIAL IV PRN (13:56)
[2020-11-15] MEDS ORDERED: LACTATED RINGERS 1,000 ML IV SCH (14:00)
--- NOTE | 2020-11-15 14:14 | XRay Report ---
CLINICAL INFORMATION: ORIF RIGHT FEMUR VS ARTHROPLASTY COMPARISON: Plain films 11/14/2020 FINDINGS: Multiple digital images from the OR show reduction in oblique fracture of the proximal femoral diaphysis to anatomic alignment. It is transfixed by lateral plate and cerclage wires. IMPRESSION: ORIF oblique proximal diaphyseal fracture now anatomically aligned Interpreted and Authenticated by: Yan Cody 11/15/20
[2020-11-15] MEDS: fentaNYL 100 MCG/2 ML VIAL IV PRN ×2 (14:24→14:30)
--- NOTE | 2020-11-15 14:47 | XRay Report ---
CLINICAL INFORMATION: post op COMPARISON: None. FINDINGS: Oblique fracture of the proximal femoral diaphysis has been reduced to anatomic alignment and is transfixed by lateral plate and cerclage wires. Right total hip prostheses remains anatomically aligned without loosening or infection. Soft tissue swelling seen as expected IMPRESSION: ORIF proximal femoral diaphyseal fracture now anatomically aligned Interpreted and Authenticated by: Yan Cody 11/15/20
[2020-11-15] MEDS ORDERED: PANTOPRAZOLE 40 MG TABLET PO SCH (17:00)
[2020-11-15] MEDS: PANTOPRAZOLE 40 MG VIAL IV SCH ×2 (17:11)
[2020-11-15 17:58] LABS: Hemoglobin 8.3 g/dL (12.0-15.0)
[2020-11-15] MEDS: SENNOSIDES 1 TABLET PO SCH (21:36)
[2020-11-15] MEDS: ATORVASTATIN 20 MG TABLET PO SCH (21:36)
[2020-11-15] MEDS: ONDANSETRON 4 MG/2 ML VIAL IV PRN (21:53)
[2020-11-15 21:54] LABS: Hematocrit 19.1 % (36.0-48.0)
[2020-11-16 01:52] LABS: Hematocrit 21.3 % (36.0-48.0); Hemoglobin 7.6 g/dL (12.0-15.0)
[2020-11-16] MEDS: DEXTROSE 5%-LR 1,000 ML IV SCH ×3 (02:30→22:22)
[2020-11-16] MEDS: HYDROmorphone 1 MG/ML SYRINGE IV PRN ×7 (02:32→21:05)
[2020-11-16 04:40] LABS: Hemoglobin A1C 5.3 % Hgb (4.0-6.0)
[2020-11-16 05:43] LABS: Appearance,Urine CLEAR (Clear); Bilirubin,Urine Negative (Negative); Color,Urine YELLOW; Culture Indicated,Urine No; Glucose,Urine (UA) Negative (Negative); Ketones,Urine Negative (Negative); Leukocyte Esterase,Urine Negative /ug (Negative); Nitrate,Urine Negative (Negative); Protein,Urine Negative (Negative); Specific Gravity,Urine 1.018 (1.000-1.035); Urine Blood Negative (Negative); Urobilinogen,Urine Negative
[2020-11-16 07:16] LABS: Hematocrit 17.3 % (36.0-48.0); Hemoglobin 7.2 g/dL (12.0-15.0)
[2020-11-16] MEDS: ONDANSETRON 4 MG/2 ML VIAL IV PRN (07:18)
[2020-11-16] MEDS ORDERED: 0.9 % SODIUM CHLORIDE 250 ML IV SCH (07:30)
[2020-11-16] MEDS: PANTOPRAZOLE 40 MG VIAL IV SCH ×2 (08:34→17:44)
[2020-11-16] MEDS: INSULIN LISPRO 1 UNIT/0.01 ML UNIT SQ SCH ×3 (08:35→17:50)
[2020-11-16] MEDS: 0.9 % SODIUM CHLORIDE 10 ML SYRINGE IV SCH ×3 (08:36→21:07)
[2020-11-16] MEDS ORDERED: ENOXAPARIN 40 MG/0.4 ML SYRINGE SQ SCH (09:00)
--- NOTE | 2020-11-16 09:01 | XRay Report ---
CLINICAL INFORMATION: check for NG placement COMPARISON: None. FINDINGS: NG tube overlies the gastric body. Stomach small large bowel are mildly dilated compatible ileus. No free air IMPRESSION: NG tube overlies the gastric body. Interpreted and Authenticated by: Yan Cody 11/16/20
[2020-11-16] MEDS: LORazepam 2 MG/ML VIAL IV PRN (10:06)
[2020-11-16] MEDS: AMITRIPTYLINE 25 MG TABLET PO SCH (10:26)
[2020-11-16] MEDS: DOCUSATE SODIUM 100 MG CAPSULE PO SCH ×2 (10:26→21:07)
--- NOTE | 2020-11-16 10:58 | Internal Med Progress Note ---
SUBJECTIVE Subjective Patient information: Note initiated : 11/16/20 at 10:56 am Service Date, if different from initiated Date: [] Patient: Masha Berger a 65 y/o F admitted on 11/14/20 for ground level fall. Chief Complaint: [] Interval history: Ms. Berger is a 65 year old F with type 2 diabetes mellitus, insulin-dependent, mixed dyslipidemia, recent right hip fracture status post ORIF, presenting with fall and refracturing of her right femur. Patient had an episode for 2 and half weeks ago status post right hip/femur ORIF. She was doing well after the surgery until last night when she sustained another fall at home when she was walking and all of a sudden her legs just gave out. She denies any loss of consciousness. She was taken back to our hospital ED and x- ray of the hip and right leg shows displaced fracture of the right femoral diaphysis at the level of the prosthetic femoral stem. She is currently complaining of 10 out of 10, constant, sharp pain localized in her right lateral thigh. Denies any shortness of breath or chest pain. Denies any lethargy or confusions. 11/15-overnight distended abdomen with multiple episodes of emesis. NG tube placed with over 2000 cc bilious output. Abdominal imaging reveals ileus pa ttern. Hemoglobin down to 7.9. Started on PPI due to blood-tinged gastric aspirate. Surgery today. Repeat hemoglobin down to 7.4. 2 units PRBC transfusion ordered. Will review postop. Family at bedside. Discussed plan of treatment. 11/16- Ms. Berger is a 65 year old F wit Patient postop day 2. Hemoglobin gradually downtrending down to 7.2. Additional 2 units blood transfusion. On IV PPI. Confused Head CT ordered. and disoriented this morning. Surgery consulted for evaluation of ileus/upper GI bleed. NG tube draining mixed bile and bloody aspirate Constitutional Vitals: Vital Signs Temp Pulse Resp BP Pulse Ox 98.3 F 98 H 14 143/71 90 11/16/20 08:00 11/16/20 08:00 11/16/20 08:00 11/16/20 08:00 11/16/20 08:00 Period Temp Pulse Resp BP Sys/Persaud Pulse Ox Last 24 Hr 96.7 F-98.9 F 86-102 8-18 108-146/56-82 90-99 Intake and Output 11/15/20 11/16/20 11/16/20 21:59 05:59 13:59 Intake Total 1377 1000 0 Output Total 200 505 Balance 1177 495 0 Weight 86.228 kg confusion delusions Nonlabored breathing NG tube with mixed bile and bloody aspirate Right hip surgery site no evidence of redness swelling Generalized pallor Intake & Output: Intake & Output 11/15/20 11/16/20 11/16/20 21:59 05:59 13:59 Intake Total 1377 1000 0 Output Total 200 505 Balance 1177 495 0 Weight 86.228 kg Intake: IV 1227 1000 Sodium Chloride 0.9% 1,000 ml @ 127 125 mls/hr IV .Q8H [facility] Rx#: [id number] Dextrose 5%-Lactated Ringers 1, 1000 1000 000 ml @ 100 mls/hr IV .Q10H [facility] Rx#:[id number] Oral 0 Tube Feeding 0 0 0 IV - Manual Only 150 Output: Gastric Drainage 200 80 Left Nare 200 80 Urine Catheter Amount 425 Other: Urine Appearance Clear Clear Uretheral (Petit) Clear Clear Clear Urine Color Bright Yellow Bright Yellow Uretheral (Petit) Bright Yellow Dark Yellow Dark Yellow OBJ DATA Labs CBC & Chem 7: 11/16/20 06:00 11/15/20 06:24 Labs: Abnormal Lab Results 11/16/20 11/16/20 11/15/20 06:00 01:09 21:04 WBC RBC Hgb 7.2 L 7.6 L 8.0 L Hct 17.3 L* 21.3 L 19.1 L* POC Hct MCH MCHC RDW Neut % (Auto) Lymph % (Auto) Lymph # (Auto) Absolute Neutrophils Carbon Dioxide Anion Gap Glucose POC Glucose 11/15/20 11/15/20 11/15/20 17:12 06:24 06:24 WBC RBC 2.98 L Hgb 8.3 L 7.4 L Hct 23.0 L 25.2 L POC Hct MCH 24.8 L MCHC 29.4 L RDW 16.9 H Neut % (Auto) 80.7 H Lymph % (Auto) 12.9 L Lymph # (Auto) 1.16 L Absolute Neutrophils Carbon Dioxide 34 H Anion Gap 7.0 L Glucose 170 H POC Glucose 11/15/20 11/14/2021 00:49 02:17 02:17 WBC 15.2 H RBC 3.20 L Hgb 7.9 L 8.1 L Hct 19.4 L* 26.6 L POC Hct 24 L MCH 25.3 L MCHC 30.5 L RDW 16.7 H Neut % (Auto) 86.1 H Lymph % (Auto) 7.6 L Lymph # (Auto) 1.16 L Absolute Neutrophils 13.06 H Carbon Dioxide Anion Gap Glucose POC Glucose 139 H Meds: Medications Acetaminophen (Acetaminophen 325 Mg Tablet) 650 mg PO Q6HP PRN; Protocol PRN Reason: Per Pain Protocol/Fever > 101 Amitriptyline HCl (Amitriptyline 25 Mg Tablet) 50 mg PO DAILY [facility] Last Admin: 11/16/20 10:26 Dose: Not Given Documented by: Atorvastatin Calcium (Atorvastatin 20 Mg Tablet) 20 mg PO QHS [facility] Last Admin: 11/15/20 21:36 Dose: Not Given Documented by: Bisacodyl (Bisacodyl 10 Mg Supp.Rect) 10 mg NV Q2-3DAYS PRN PRN Reason: Constipation Dextrose (Dextrose 50% 50 Ml Vial) 0 ml IV UD PRN PRN Reason: Hypoglycemia Diagnostic Test (Pha) (Accu-Chek 1 Each Strip) 1 each FS Q6 [facility] Last Admin: 11/16/20 07:38 Dose: 1 each Documented by: Docusate Sodium (Docusate Sodium 100 Mg Capsule) 100 mg PO BID [facility] Last Admin: 11/16/20 10:26 Dose: Not Given Documented by: Glucose (Dextrose 31 Gm Oral.Susp) 15 gm PO PRN PRN PRN Reason: Hypoglycemia Hydromorphone HCl (Hydromorphone 1 Mg/Ml Syringe) 1 mg IV Q2HP PRN; Protocol PRN Reason: Per Pain Protocol Last Admin: 11/16/20 10:06 Dose: 1 mg Documented by: Dextrose/Lactated Ringer's (Dextrose 5%-Lactated Ringers) 1,000 mls @ 100 mls/hr IV .Q10H [facility] Last Admin: 11/16/20 02:30 Dose: 100 mls/hr Documented by: Sodium Chloride (Sodium Chloride 0.9%) 250 mls @ 20 mls/hr IV .[id number] [facility] Stop: 11/16/20 19:59 Last Admin: 11/16/20 09:01 Dose: 20 mls/hr Documented by: Insulin Human Lispro (Insulin Lispro 1 Unit/0.01 Ml Unit) 0 unit SQ Q6 [facility]; Protocol Last Admin: 11/16/20 08:35 Dose: 2 units Documented by: Ketorolac Tromethamine (Ketorolac 15 Mg/Ml Vial) 15 mg IV Q6HP PRN PRN Reason: Per Pain Protocol Stop: 11/16/20 20:10 Last Admin: 11/14/20 20:44 Dose: 15 mg Documented by: Lorazepam (Lorazepam 2 Mg/Ml Vial) 0.5 mg IV Q6HP PRN PRN Reason: ANXIETY/SEDATION Last Admin: 11/16/20 10:06 Dose: 0.5 mg Documented by: Magnesium Hydroxide (Magnesium Hydroxide 30 Ml Oral.Susp) 30 ml PO BIDP PRN PRN Reason: Constipation Ondansetron HCl (Ondansetron 4 Mg/2 Ml Vial) 4 mg IV Q6HP PRN PRN Reason: Nausea And Vomiting Last Admin: 11/16/20 07:18 Dose: 4 mg Documented by: Oxycodone HCl (Oxycodone Hcl 5 Mg Tablet) 5 mg PO Q4HP PRN; Protocol PRN Reason: Per Pain Protocol Last Admin: 11/14/20 20:45 Dose: 5 mg Documented by: Pantoprazole Sodium (Pantoprazole 40 Mg Vial) 40 mg IV BIDAC [facility] Last Admin: 11/16/20 08:34 Dose: 40 mg Documented by: Polyethylene Glycol (Polyethylene Glycol 3350 17 Gm Packet) 17 gm PO DAILYP PRN PRN Reason: Constipation Promethazine HCl (Promethazine 25 Mg/Ml Vial) 12.5 mg IV Q6HP PRN PRN Reason: Nausea And Vomiting Last Admin: 11/14/20 23:20 Dose: 12.5 mg Documented by: Senna (Sennosides 1 Tablet) 2 tab PO HS [facility] Last Admin: 11/15/20 21:36 Dose: Not Given Documented by: Sodium Biphosphate/Sodium Phosphate (Fleets Adult Enema) 1 dose NV Q3-4DAYS PRN PRN Reason: Constipation Sodium Chloride (0.9 % Sodium Chloride 10 Ml Syringe) 10 ml IV Q8 [facility] Last Admin: 11/16/20 08:36 Dose: 10 ml Documented by: Throat Lozenges (Benzocaine/Menthol 1 Lozenge) 1 lozenge PO PRN PRN PRN Reason: Sore Throat Tizanidine HCl (Tizanidine 4 Mg Tablet) 4 mg PO Q6HP PRN PRN Reason: muscle spasticity Trazodone HCl (Trazodone Hcl 50 Mg Tablet) 50 mg PO HSP PRN PRN Reason: Insomnia A/P Narrative A/P Narrative: * Right femur fracture/fall-postop day 1. Managed per orthopedics including pain management/postop therapies and nursing care * Ileus/recurrent nausea currently n.p.o./NG tube decompression. Surgery consulted. * Acute blood loss anemia status post 4 units PRBC. Continue serial hemoglobin check. On IV PPI * Postop delirium head CT, avoid sedative hypnotics. Family concerns about prior history of viral meningitis however no objective signs including neck stiffness/fever/photophobia. * Type II DM continue sliding scale insulin, CCD post op * Hyperlipidemia continue statin * History of chronic pain continue prior home medications postop * Prophylaxis SCDs * Full code Plan * Additional 2 units PRBC transfusion * Surgery consult * IV PPI twice daily * Pre-existing medical condition management home medications * Postop care per orthopedics/ Early mobilization * Case management coordinate SNF transfer Time Spent With Patient Time: Total time spent is greater than 50% in coordination of care (as documented) at patient's floor/unit and/or counseling patient: QUALITY Stroke Symptom Onset Unknown: No VTE Deep Vein Thrombosis/Pulmonary Embolism Present on Admission: No
--- NOTE | 2020-11-16 11:39 | Operative Note ---
DATE OF OPERATION: 11/15/2020 PREOPERATIVE DIAGNOSIS: Right femur periprosthetic fracture, closed. POSTOPERATIVE DIAGNOSIS: Right femur periprosthetic fracture, closed. PROCEDURE PERFORMED: Open treatment and internal fixation of the right periprosthetic femur fracture. SURGEON: Ben Sullivan MD RN PROGRESSIVE CARE: Jasbir Gandhi PA-C. This providers expertise and technical skill were required throughout the case. The PA assisted with preoperative coordination, intraoperative retraction, wound closure, and dressing and splint application, as well as postoperative documentation and care coordination. ANESTHESIA: General. DRAINS: None. SPECIMENS: None. COMPLICATIONS: None. ESTIMATED BLOOD LOSS: 500 mL. POSTOPERATIVE CONDITION: Fair. INDICATIONS FOR SURGERY: This is a 65-year-old female who approximately 3 weeks prior had undergone an anterior total hip arthroplasty by al. She then fell, landing on her right hip, had severe pain and inability to bear weight. She was taken to the Emergency Department and x-rays taken, which showed a periprosthetic femoral shaft fracture. FINDINGS AT SURGERY: A periprosthetic femoral shaft fracture of the femoral stem, appeared stable. Post-fixation showed satisfactory reduction with hardware in good position. PROCEDURE IN DETAIL: The patient had been seen preoperatively. Informed consent had been obtained after discussion of risks and benefits of surgery. Risks including, but not limited to, bleeding, possibly requiring transfusion; infection, possibly requiring implant removal and prolonged IV antibiotics; injury to nerves, blood vessels, other surrounding structures, anesthetic risks; nonunion or malunion of the fracture; this being greatly increased with her cigarette smoking, which she was strongly encouraged to stop; failure of hardware fixation; possibility of needing further surgeries. She understood these risks and wished to proceed. Correct operative site was marked and then patient was taken to the operating room. General anesthesia was induced. She was carefully positioned onto the Perrin table and the right lower extremity was carefully placed in some traction and prepped and draped in normal sterile fashion. Timeout was performed verifying patient name, operative site, and plan. Ioban was used to cover all skin surfaces and then a lateral incision was made starting at the tip of the trochanter extending about 2/3 down the leg. This was done with a scalpel through skin and subcutaneous tissue. We then spent quite a bit of time getting hemostasis with Bovie cautery. We continued down onto the IT band and this was incised in line with the skin incision. We then went to the approximate posterior one-third and anterior two-third junction of the vastus lateralis and split the vastus fascia. We then used a Ortiz to split through the muscle fibers and then exposed the fracture. We suctioned out fracture hematoma and we could see the distal end of the stem out of the proximal fragment, manual feeling on it and then gentle tapping and I also used a curved curette to pull on the tip a little bit to see if there is any movement; the proximal fragment and stem moved as one. Based off of this, we felt it was appropriate to leave the stem in place and then began our reduction. We did expose the entire proximal two-thirds of the femur and then an accord template was placed to determine the appropriate length and we did feel the longest plate was necessary at 265. This was opened. We did irrigate with IrriSept and then the plate was positioned and then we clamped the plate to the femur. Once we had it reasonably positioned we then started proximally placing cerclage cables, the proximal most going around the proximal hole in the plate and then underneath the collar of the hip stem. This pulled the hooks down into the tip of the trochanter nicely and then we continued to work our way down the plate. We did use multiple clamps to reduce the fracture and hold the plate as close to bone as possible. Once we were down past the tip of the femoral stem we then chose to remove the cable eyelets and drilled screws through the plate, placing bicortical 4.5 titanium screws as this was a titanium plate. We continued to fill every hole as it did require the last 3 holes to get 3 screws distal to the tip of the fracture. Once this was completed, final fluoro images were taken and saved. We then irrigated copiously with IrriSept again, after a minute we then irrigated with saline. A #1 Vicryl was used to close the IT band. We did several interrupted to reduce it and then running stitches in between the interrupteds. Final IrriSept irrigation was done, after a minute final saline irrigation and then 2-0 Monocryl was used for subcutaneous and mary ellen for skin. Xeroform and sterile dressing were applied. The patient was then awakened and transferred to a gurney and extubated and taken to recovery room in satisfactory condition. CLARE:magdy Job ID: [id number] Doc ID: [id number] Ben Sullivan MD
--- NOTE | 2020-11-16 11:41 | Cat Scan Report ---
CLINICAL INFORMATION: Mental status decline. Trauma COMPARISON: MRI 05/17/2009 TECHNIQUE: 2.5 mm helical slices were obtained in the skull base to vertex. Following reconstruction, axial reformatted images were reviewed at bone and parenchymal windows. The exam was performed using radiation dose optimization techniques including, but not limited to, automated exposure control, adjustment of the mA and/or kV according to patient size and use of iterative reconstruction technique. FINDINGS: The ventricles, sulci, fissures, and cisterns are symmetrically large compatible with mild age-related atrophy. Only slight progression from previous exam.. No extra-axial fluid collections are identified. The cerebrum, brainstem and cerebellum are unremarkable. There is no evidence of hemorrhage, mass effect, or edema. Bone windows show no osseous abnormality. IMPRESSION: Mild age-related atrophy. No intracerebral hemorrhage or other acute findings after trauma. Interpreted and Authenticated by: Yan Cody 11/16/20
--- NOTE | 2020-11-16 11:42 | XRay Report ---
CLINICAL INFORMATION: Ileus COMPARISON: None. FINDINGS: NG tube overlies the gastric body. Stomach, small and large bowel are unremarkable. No evidence of ileus or obstruction. No free air, soft tissue mass or pathologic calcification. IMPRESSION: Interval resolution of ileus. Normal exam Interpreted and Authenticated by: Yan Cody 11/16/20
[2020-11-16 12:18] LABS: Basophils # (Auto) 0.06 K/mcL (0.00-0.20); Basophils % (Auto) 0.4 % (0.0-2.0); Eosinophils # (Auto) 0 K/mcL (0.00-0.70); Eosinophils % (Auto) 0 % (0.0-7.0); Hematocrit 25.7 % (36.0-48.0); Hemoglobin 8.1 g/dL (12.0-15.0); Lymphocytes # (Auto) 1.41 K/mcL (1.50-4.80); Lymphocytes % (Auto) 9.2 % (15.0-49.0); Mean Cell Volume 84.5 fL (80.0-100.0); Mean Corpuscular HGB Conc 31.5 g/dL (31.0-36.0); Mean Platelet Volume 8.9 fL (7.4-10.4); Monocytes # (Auto) 0.78 K/mcL (0.10-0.90); Monocytes % (Auto) 5.1 % (1.0-12.0); Neutrophils % (Auto) 85.3 % (38.0-78.0); Platelet Count 216 K/mcL (140-440); RBC 3.04 M/mcL (4.00-5.20); Red Cell Distribution Width 16.5 % (11.5-14.5); WBC 15.3 K/mcL (4.5-11.0)
--- NOTE | 2020-11-16 12:34 | General Surgery Consult Note ---
HPI Data of Consult Patient: new to practice Consult date: 11/16/20 Primary Care Provider: Mala Armas Consult Narrative Reason for consult: Postoperative ileus History of present illness: This is a complex 65-year-old female who presents with femur fracture. 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 She was seen in the emergency room and found to have a prosthetic associated femur fracture with decreased H&H. She was admitted and had several episodes of emesis overnight and NG tube was placed and she was taken to the OR yesterday for fixation of the femur fracture. At that time she got 2 units of blood, her H&H was down again this morning and therefore I was asked to see the patient to evaluate for possible GI bleed. At this time patient has no complaints, NG tube initially put out to liters, since that time has had minimal output and KUB this morning is consistent with a normal bowel gas pattern. cc:: CC: Scot Tipton MD Review of Systems Review of systems: All systems are reviewed, negative other than above PFSH PFSH All Active Problems Hypochromic anemia (Acute) Femur fracture, right (Acute) SI (sacroiliac) joint inflammation (Acute) Right hip pain (Acute) Weight loss (Chronic) Abdominal pain (Chronic) Adenomatous colon polyp (Chronic) Mild chronic gastritis (Chronic) Constipation (Chronic) Hemorrhoids (Chronic) History of colonoscopy (Chronic 12/05/16) Delayed gastric emptying (Chronic) Gastric ulcer (Chronic) History of esophagogastroduodenoscopy (EGD) (Chronic 11/30/16) Non-compliant patient (Chronic) Non compliance w medication regimen (Chronic) Squamous cell carcinoma (Chronic) Actinic keratosis (Chronic) Lumbar disc disease (Chronic) Cervical radiculopathy (Chronic) 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) Back pain (Chronic) Diabetes mellitus (Chronic) OCD (obsessive compulsive disorder) (Chronic) GERD (gastroesophageal reflux disease) (Chronic) Major depressive disorder (Chronic) DDD (degenerative disc disease), lumbar (Chronic) Interstitial cystitis (Chronic) Right hip pain (Chronic) Medication monitoring encounter (Chronic) Expressive language disorder (Chronic) Ptosis, left eyelid (Chronic) Hypertriglyceridemia (Chronic) Essential hypertension (Chronic) Diabetes mellitus with diabetic polyneuropathy (Chronic) Diabetes mellitus type II, uncontrolled (Chronic) Abnormal finding on mammography (Chronic) Chronic hyponatremia (Chronic) Abnormal weight loss (Chronic) Nicotine addiction (Chronic) Kidney stones (Chronic) Left flank pain (Chronic) Microscopic hematuria (Chronic) Medical History Abdominal pain Abnormal finding on mammography Abnormal weight loss Actinic keratosis Adenomatous colon polyp Articular disc disorder of both temporomandibular joints Back pain Cervical radiculopathy Chronic hyponatremia Constipation DDD (degenerative disc disease), lumbar Delayed gastric emptying Diabetes mellitus Diabetes mellitus type II, uncontrolled Diabetes mellitus with diabetic polyneuropathy Essential hypertension Expressive language disorder Gastric ulcer GERD (gastroesophageal reflux disease) Hemorrhoids Hypertriglyceridemia Interstitial cystitis Kidney stones bilateral Left flank pain Lumbar disc disease Major depressive disorder Medication monitoring encounter Microscopic hematuria Mild chronic gastritis Nicotine addiction OCD (obsessive compulsive disorder) Ptosis, left eyelid Right hip pain Squamous cell carcinoma Weight loss Surgical History History of appendectomy History of back surgery 1991 History of bilateral breast reduction surgery History of bladder suspension procedure History of cataract surgery History of section History of colonoscopy (12/05/16) History of esophagogastroduodenoscopy (EGD) (11/30/16) History of hip replacement History of hysterectomy due to benign tumor History of oophorectomy History of shoulder surgery 2009 Status post surgical manipulation of ankle joint 1997 Family History Mother Prescription drug abuse CVA (cerebral vascular accident) Father Esophageal cancer Hypertension Social History marital status: occupational status: disabled physical activity: none alcohol intake frequency: holiday/special occasion only substance use type: does not use MEDS/ALLERGIES Home Medications and Allergies Home Medications Medication Instructions Recorded Confirmed Type insulin lispro [Humalog KwikPen 12 unit SUBCUT DAILY@1230 08/17/20 11/14/20 History Insulin] insulin lispro [Humalog KwikPen 20 unit SUB-Q BID@08,1730 08/17/20 11/14/20 History Insulin] amitriptyline 50 mg PO DAILY 10/26/20 11/14/20 History insulin glargine [Lantus Solostar 42 unit SUBCUT DAILY 10/26/20 11/14/20 History U-100 Insulin] aspirin 81 mg PO BID #60 tab 10/27/20 11/14/20 Rx oxycodone 10 mg PO Q4H PRN #60 tab 10/27/20 11/14/20 Rx atorvastatin 20 mg tablet 20 mg PO QHS #90 tab 11/03/20 11/14/20 Rx tizanidine 4 mg tablet 4 mg PO Q6HP PRN #60 tab 11/08/20 11/14/20 Rx gabapentin 1,200 mg PO TID PRN 11/14/20 11/14/20 History Allergies Allergy/AdvReac Type Severity Reaction Status Date / Time Erythromycin Base Allergy Intermediate Hives Verified 11/14/20 01:19 [From E-Mycin] Penicillins Allergy Intermediate Hives Verified 11/14/20 01:19 hydrocodone Allergy Mild Rash Verified 11/14/20 01:19 metformin Allergy Mild Hives Verified 11/14/20 01:19 phenazopyridine AdvReac Intermediate Other Verified 11/14/20 01:19 [From Pyridium] lorazepam [From Ativan] AdvReac Mild Agitated Verified 11/14/20 01:19 Zolpidem [From Ambien] AdvReac Mild Agitated Verified 11/14/20 01:19 Physical Examination Vital Signs Vital signs: Temp Pulse Resp BP Pulse Ox 98.6 F 98 H 18 156/78 100 11/16/20 11:05 11/16/20 11:05 11/16/20 11:05 11/16/20 11:05 11/16/20 11:05 General physical appearance General physical exam: well developed, well nourished and no distress Eyes Eye exam: PERRL and normal ocular movement ENT ENT exam: normal pinna, normal nares, normal mucosa, no hearing loss and no congestion Head Head exam IM: Present atraumatic and normocephalic Neck Neck exam: no masses, no bruits, trachea midline, no lymphadenopathy and no venous distension Cardiovascular Cardiovascular exam IM: Present normal rate and rhythm Respiratory Respiratory exam: normal expansion, normal respiratory effort, clear to pe rcussion and clear to auscultation Abdomen Abdomen: Present soft, non tender and bowel sounds Hernia: Present none Genitourinary Genitourinary (Female): Present normal external genitalia Rectum Rectum: Present normal sphincter tone, no hemorrhoids, no tenderness, no masses and no bleeding Integumentary Integumentary: Present no rash, no growths and no abnormal pigmentation Neurologic Neurologic: Present normal coordination and normal sensation Musculoskeletal Musculoskeletal: Present normal gait and normal posture Psychiatric Psychiatric: Present oriented to time, oriented to person, oriented to place, speech is normal and memory intact Results Labs Result diagrams: 11/16/20 10:44 11/15/20 06:24 Labs: Abnormal lab results 11/15/20 11/15/20 11/16/20 Range/Units 17:12 21:04 01:09 WBC (4.5-11.0) K/mcL RBC (4.00-5.20) M/mcL Hgb 8.3 L 8.0 L 7.6 L (12.0-15.0) g/dL Hct 23.0 L 19.1 L* 21.3 L (36.0-48.0) % RDW (11.5-14.5) % Neut % (Auto) (38.0-78.0) % Lymph % (Auto) (15.0-49.0) % Lymph # (Auto) (1.50-4.80) K/mcL Absolute Neutrophils (1.80-8.00) K/mcL 11/16/20 11/16/20 Range/Units 06:00 10:44 WBC 15.3 H (4.5-11.0) K/mcL RBC 3.04 L (4.00-5.20) M/mcL Hgb 7.2 L 8.1 L (12.0-15.0) g/dL Hct 17.3 L* 25.7 L (36.0-48.0) % RDW 16.5 H (11.5-14.5) % Neut % (Auto) 85.3 H (38.0-78.0) % Lymph % (Auto) 9.2 L (15.0-49.0) % Lymph # (Auto) 1.41 L (1.50-4.80) K/mcL Absolute Neutrophils 13.06 H (1.80-8.00) K/mcL Diabetes panel 11/14/20 Range/Units 02:17 Hemoglobin A1c 5.3 (4.0-6.0) % Hgb All other labs normal. A/P Narrative A/P Narrative: 65-year-old female with hip replacement followed by femur fracture. Decreased H&H likely associated with prior surgeries and stress gastritis. Ileus likely secondary to above. Recommendation: Follow H&H, if continues to drop may need EGD and colonoscopy. GI prophylaxis. Continue with NG tube, ileus resolved on plain films likely be able to DC NG tube tomorrow and start liquids depending on exam. Time Spent With Patient Time: Total time spent is greater than 50% in coordination of care (as documented) at patient's floor/unit and/or counseling patient:
--- NOTE | 2020-11-16 17:20 | Orthopedic Progress Note ---
SUBJECTIVE Subjective Patient information: Note initiated : 11/16/20 at 5:17 pm Service Date, if different from initiated Date: [] Patient: Masha Berger 65 y/o F admitted on 11/14/20 for ground level fall. Chief Complaint: Mild pain and confusion. Constitutional Vitals: Vital Signs Temp Pulse Resp BP Pulse Ox 98.6 F 102 H 18 162/83 96 11/16/20 12:00 11/16/20 12:00 11/16/20 12:00 11/16/20 12:00 11/16/20 12:00 Period Temp Pulse Resp BP Sys/Persaud Pulse Ox Last 24 Hr 97.3 F-98.9 F 94-102 12-18 121-162/69-83 90-100 Intake and Output 11/16/20 11/16/20 11/16/20 05:59 13:59 21:59 Intake Total 1000 1530 0 Output Total 505 1070 Balance 495 1530 -1070 Intake & Output: Intake & Output 11/16/20 11/16/20 11/16/20 05:59 13:59 21:59 Intake Total 1000 1530 0 Output Total 505 1070 Balance 495 1530 -1070 Intake: IV 1000 975 Dextrose 5%-Lactated Ringers 1, 1000 975 000 ml @ 100 mls/hr IV .Q10H [facility] Rx#:[id number] Oral 0 Tube Feeding 0 0 0 Blood Product 555 Output: Gastric Drainage 80 120 Left Nare 80 120 Urine Catheter Amount 425 950 Other: Urine Appearance Clear Uretheral (Petit) Clear Clear Urine Color Bright Yellow Dark Urszula Blood Tinged Uretheral (Petit) Dark Yellow Dark Yellow Urine Odor Normal OBJ DATA Labs CBC & Chem 7: 11/16/20 10:44 11/15/20 06:24 Labs: Abnormal Lab Results 11/16/20 11/16/20 11/16/20 10:44 06:00 01:09 WBC 15.3 H RBC 3.04 L Hgb 8.1 L 7.2 L 7.6 L Hct 25.7 L 17.3 L* 21.3 L POC Hct MCH MCHC RDW 16.5 H Neut % (Auto) 85.3 H Lymph % (Auto) 9.2 L Lymph # (Auto) 1.41 L Absolute Neutrophils 13.06 H Carbon Dioxide Anion Gap Glucose POC Glucose 11/15/20 11/15/20 11/15/20 21:04 17:12 06:24 WBC RBC Hgb 8.0 L 8.3 L Hct 19.1 L* 23.0 L POC Hct MCH MCHC RDW Neut % (Auto) Lymph % (Auto) Lymph # (Auto) Absolute Neutrophils Carbon Dioxide 34 H Anion Gap 7.0 L Glucose 170 H POC Glucose 11/15/20 11/15/20 11/14/20 06:24 00:49 02:17 WBC RBC 2.98 L Hgb 7.4 L 7.9 L Hct 25.2 L 19.4 L* POC Hct 24 L MCH 24.8 L MCHC 29.4 L RDW 16.9 H Neut % (Auto) 80.7 H Lymph % (Auto) 12.9 L Lymph # (Auto) 1.16 L Absolute Neutrophils Carbon Dioxide Anion Gap Glucose POC Glucose 139 H 11/14/20 02:17 WBC 15.2 H RBC 3.20 L Hgb 8.1 L Hct 26.6 L POC Hct MCH 25.3 L MCHC 30.5 L RDW 16.7 H Neut % (Auto) 86.1 H Lymph % (Auto) 7.6 L Lymph # (Auto) 1.16 L Absolute Neutrophils 13.06 H Carbon Dioxide Anion Gap Glucose POC Glucose Bandages c/d/i nvi-distal Able to actively plantarflex and dorsi flex the R ankle Meds: Medications Acetaminophen (Acetaminophen 325 Mg Tablet) 650 mg PO Q6HP PRN; Protocol PRN Reason: Per Pain Protocol/Fever > 101 Amitriptyline HCl (Amitriptyline 25 Mg Tablet) 50 mg PO DAILY [facility] Last Admin: 11/16/20 10:26 Dose: Not Given Documented by: Atorvastatin Calcium (Atorvastatin 20 Mg Tablet) 20 mg PO QHS [facility] Last Admin: 11/15/20 21:36 Dose: Not Given Documented by: Bisacodyl (Bisacodyl 10 Mg Supp.Rect) 10 mg MT Q2-3DAYS PRN PRN Reason: Constipation Dextrose (Dextrose 50% 50 Ml Vial) 0 ml IV UD PRN PRN Reason: Hypoglycemia Diagnostic Test (Pha) (Accu-Chek 1 Each Strip) 1 each FS Q6 [facility] Last Admin: 11/16/20 12:10 Dose: 1 each Documented by: Docusate Sodium (Docusate Sodium 100 Mg Capsule) 100 mg PO BID [facility] Last Admin: 11/16/20 10:26 Dose: Not Given Documented by: Glucose (Dextrose 31 Gm Oral.Susp) 15 gm PO PRN PRN PRN Reason: Hypoglycemia Hydromorphone HCl (Hydromorphone 1 Mg/Ml Syringe) 1 mg IV Q2HP PRN; Protocol PRN Reason: Per Pain Protocol Last Admin: 11/16/20 14:20 Dose: 1 mg Documented by: Dextrose/Lactated Ringer's (Dextrose 5%-Lactated Ringers) 1,000 mls @ 100 mls/hr IV .Q10H [facility] Last Admin: 11/16/20 12:15 Dose: 100 mls/hr Documented by: Sodium Chloride (Sodium Chloride 0.9%) 250 mls @ 20 mls/hr IV .[id number] [facility] Stop: 11/16/20 19:59 Last Admin: 11/16/20 09:01 Dose: 20 mls/hr Documented by: Insulin Human Lispro (Insulin Lispro 1 Unit/0.01 Ml Unit) 0 unit SQ Q6 [facility]; Protocol Last Admin: 11/16/20 12:24 Dose: 2 units Documented by: Ketorolac Tromethamine (Ketorolac 15 Mg/Ml Vial) 15 mg IV Q6HP PRN PRN Reason: Per Pain Protocol Stop: 11/16/20 20:10 Last Admin: 11/14/20 20:44 Dose: 15 mg Documented by: Lorazepam (Lorazepam 2 Mg/Ml Vial) 0.5 mg IV Q6HP PRN PRN Reason: ANXIETY/SEDATION Last Admin: 11/16/20 10:06 Dose: 0.5 mg Documented by: Magnesium Hydroxide (Magnesium Hydroxide 30 Ml Oral.Susp) 30 ml PO BIDP PRN PRN Reason: Constipation Ondansetron HCl (Ondansetron 4 Mg/2 Ml Vial) 4 mg IV Q6HP PRN PRN Reason: Nausea And Vomiting Last Admin: 11/16/20 07:18 Dose: 4 mg Documented by: Oxycodone HCl (Oxycodone Hcl 5 Mg Tablet) 5 mg PO Q4HP PRN; Protocol PRN Reason: Per Pain Protocol Last Admin: 11/14/20 20:45 Dose: 5 mg Documented by: Pantoprazole Sodium (Pantoprazole 40 Mg Vial) 40 mg IV BIDAC [facility] Last Admin: 11/16/20 08:34 Dose: 40 mg Documented by: Polyethylene Glycol (Polyethylene Glycol 3350 17 Gm Packet) 17 gm PO DAILYP PRN PRN Reason: Constipation Promethazine HCl (Promethazine 25 Mg/Ml Vial) 12.5 mg IV Q6HP PRN PRN Reason: Nausea And Vomiting Last Admin: 11/14/20 23:20 Dose: 12.5 mg Documented by: Senna (Sennosides 1 Tablet) 2 tab PO HS [facility] Last Admin: 11/15/20 21:36 Dose: Not Given Documented by: Sodium Biphosphate/Sodium Phosphate (Fleets Adult Enema) 1 dose MT Q3-4DAYS PRN PRN Reason: Constipation Sodium Chloride (0.9 % Sodium Chloride 10 Ml Syringe) 10 ml IV Q8 [facility] Last Admin: 11/16/20 14:22 Dose: 10 ml Documented by: Throat Lozenges (Benzocaine/Menthol 1 Lozenge) 1 lozenge PO PRN PRN PRN Reason: Sore Throat Tizanidine HCl (Tizanidine 4 Mg Tablet) 4 mg PO Q6HP PRN PRN Reason: muscle spasticity Trazodone HCl (Trazodone Hcl 50 Mg Tablet) 50 mg PO HSP PRN PRN Reason: Insomnia A/P Assessment and plan (1) Femur fracture, right: Status: Acute Comment: Mobilize with PT discharge to SNF when cleared by hospitalist. Time Spent With Patient Time: Total time spent is greater than 50% in coordination of care (as documented) at patient's floor/unit and/or counseling patient:
[2020-11-16] MEDS: SENNOSIDES 1 TABLET PO SCH (21:07)
[2020-11-16] MEDS: ATORVASTATIN 20 MG TABLET PO SCH (21:07)
[2020-11-17] MEDS: INSULIN LISPRO 1 UNIT/0.01 ML UNIT SQ SCH ×4 (00:47→17:16)
[2020-11-17] MEDS: LORazepam 2 MG/ML VIAL IV PRN (00:47)
[2020-11-17] MEDS: HYDROmorphone 1 MG/ML SYRINGE IV PRN ×3 (02:57→15:50)
--- NOTE | 2020-11-17 03:17 | XRay Report ---
CLINICAL INFORMATION: SOB COMPARISON: 05/07/2013 FINDINGS: The heart is moderately enlarged-increased from prior x-ray. Mediastinum is unremarkable. NG tube extends off the edge of the film-at least the gastric body. The pulmonary vasculature is moderately distended with mild peribronchovascular edema. No infiltrates or effusions IMPRESSION: Moderate CHF Interpreted and Authenticated by: Yan Cody 11/17/20
[2020-11-17] MEDS: 0.9 % SODIUM CHLORIDE 10 ML SYRINGE IV SCH ×3 (05:58→20:29)
[2020-11-17] MEDS: DEXTROSE 5%-LR 1,000 ML IV SCH ×2 (06:40→09:10)
[2020-11-17] MEDS: PANTOPRAZOLE 40 MG VIAL IV SCH ×2 (07:23→16:35)
--- NOTE | 2020-11-17 07:38 | Orthopedic Progress Note ---
SUBJECTIVE Subjective Patient information: Note initiated : 11/17/20 at 7:36 am Service Date, if different from initiated Date: [] Patient: Masha Berger 65 y/o F admitted on 11/14/20 for ground level fall. Chief Complaint: Pt seems very confused and slow to respond to commands Constitutional Vitals: Vital Signs Temp Pulse Resp BP Pulse Ox 98.3 F 88 16 180/87 93 11/17/20 03:04 11/17/20 03:04 11/17/20 03:04 11/17/20 03:04 11/17/20 03:04 Period Temp Pulse Resp BP Sys/Persaud Pulse Ox Last 24 Hr 98.2 F-98.9 F 88-102 14-18 143-180/71-87 90-100 Intake and Output 11/16/20 11/17/20 11/17/20 21:59 05:59 13:59 Intake Total 0 1000 Output Total 1770 1125 Balance -1770 -125 Weight 194 lb 8 oz Intake & Output: Intake & Output 11/16/20 11/17/20 11/17/20 21:59 05:59 13:59 Intake Total 0 1000 Output Total 1770 1125 Balance -1770 -125 Weight 194 lb 8 oz Intake: IV 1000 Dextrose 5%-Lactated Ringers 1, 1000 000 ml @ 100 mls/hr IV .Q10H [facility] Rx#:[id number] Oral 0 Tube Feeding 0 0 Output: Gastric Drainage 120 0 Left Nare 120 0 Urine Catheter Amount 1650 1125 Other: Urine Appearance Uretheral (Petit) Clear Urine Color Dark Urszula Blood Tinged Blood Tinged Uretheral (Petit) Straw Urine Odor Normal OBJ DATA Labs CBC & Chem 7: 11/16/20 10:44 11/15/20 06:24 Labs: Abnormal Lab Results 11/16/20 11/16/20 11/16/20 10:44 06:00 01:09 WBC 15.3 H RBC 3.04 L Hgb 8.1 L 7.2 L 7.6 L Hct 25.7 L 17.3 L* 21.3 L MCH MCHC RDW 16.5 H Neut % (Auto) 85.3 H Lymph % (Auto) 9.2 L Lymph # (Auto) 1.41 L Absolute Neutrophils 13.06 H Carbon Dioxide Anion Gap Glucose 11/15/20 11/15/20 11/15/20 21:04 17:12 06:24 WBC RBC Hgb 8.0 L 8.3 L Hct 19.1 L* 23.0 L MCH MCHC RDW Neut % (Auto) Lymph % (Auto) Lymph # (Auto) Absolute Neutrophils Carbon Dioxide 34 H Anion Gap 7.0 L Glucose 170 H 11/15/20 11/15/20 06:24 00:49 WBC RBC 2.98 L Hgb 7.4 L 7.9 L Hct 25.2 L 19.4 L* MCH 24.8 L MCHC 29.4 L RDW 16.9 H Neut % (Auto) 80.7 H Lymph % (Auto) 12.9 L Lymph # (Auto) 1.16 L Absolute Neutrophils Carbon Dioxide Anion Gap Glucose Bandages c/d/i nvi-distal Meds: Medications Acetaminophen (Acetaminophen 325 Mg Tablet) 650 mg PO Q6HP PRN; Protocol PRN Reason: Per Pain Protocol/Fever > 101 Amitriptyline HCl (Amitriptyline 25 Mg Tablet) 50 mg PO DAILY [facility] Last Admin: 11/16/20 10:26 Dose: Not Given Documented by: Atorvastatin Calcium (Atorvastatin 20 Mg Tablet) 20 mg PO QHS [facility] Last Admin: 11/16/20 21:07 Dose: Not Given Documented by: Bisacodyl (Bisacodyl 10 Mg Supp.Rect) 10 mg NC Q2-3DAYS PRN PRN Reason: Constipation Dextrose (Dextrose 50% 50 Ml Vial) 0 ml IV UD PRN PRN Reason: Hypoglycemia Diagnostic Test (Pha) (Accu-Chek 1 Each Strip) 1 each FS Q6 [facility] Last Admin: 11/17/20 06:05 Dose: 1 each Documented by: Docusate Sodium (Docusate Sodium 100 Mg Capsule) 100 mg PO BID [facility] Last Admin: 11/16/20 21:07 Dose: Not Given Documented by: Glucose (Dextrose 31 Gm Oral.Susp) 15 gm PO PRN PRN PRN Reason: Hypoglycemia Hydromorphone HCl (Hydromorphone 1 Mg/Ml Syringe) 1 mg IV Q2HP PRN; Protocol PRN Reason: Per Pain Protocol Last Admin: 11/17/20 07:25 Dose: 1 mg Documented by: Dextrose/Lactated Ringer's (Dextrose 5%-Lactated Ringers) 1,000 mls @ 100 mls/hr IV .Q10H [facility] Last Admin: 11/17/20 06:40 Dose: Not Given Documented by: Insulin Human Lispro (Insulin Lispro 1 Unit/0.01 Ml Unit) 0 unit SQ Q6 [facility]; Protocol Last Admin: 11/17/20 06:12 Dose: 1 units Documented by: Lorazepam (Lorazepam 2 Mg/Ml Vial) 0.5 mg IV Q6HP PRN PRN Reason: ANXIETY/SEDATION Last Admin: 11/17/20 00:47 Dose: 0.5 mg Documented by: Magnesium Hydroxide (Magnesium Hydroxide 30 Ml Oral.Susp) 30 ml PO BIDP PRN PRN Reason: Constipation Ondansetron HCl (Ondansetron 4 Mg/2 Ml Vial) 4 mg IV Q6HP PRN PRN Reason: Nausea And Vomiting Last Admin: 11/16/20 07:18 Dose: 4 mg Documented by: Oxycodone HCl (Oxycodone Hcl 5 Mg Tablet) 5 mg PO Q4HP PRN; Protocol PRN Reason: Per Pain Protocol Last Admin: 11/14/20 20:45 Dose: 5 mg Documented by: Pantoprazole Sodium (Pantoprazole 40 Mg Vial) 40 mg IV BIDAC [facility] Last Admin: 11/17/20 07:23 Dose: 40 mg Documented by: Polyethylene Glycol (Polyethylene Glycol 3350 17 Gm Packet) 17 gm PO DAILYP PRN PRN Reason: Constipation Promethazine HCl (Promethazine 25 Mg/Ml Vial) 12.5 mg IV Q6HP PRN PRN Reason: Nausea And Vomiting Last Admin: 11/14/20 23:20 Dose: 12.5 mg Documented by: Senna (Sennosides 1 Tablet) 2 tab PO HS [facility] Last Admin: 11/16/20 21:07 Dose: Not Given Documented by: Sodium Biphosphate/Sodium Phosphate (Fleets Adult Enema) 1 dose NC Q3-4DAYS PRN PRN Reason: Constipation Sodium Chloride (0.9 % Sodium Chloride 10 Ml Syringe) 10 ml IV Q8 [facility] Last Admin: 11/17/20 05:58 Dose: 10 ml Documented by: Throat Lozenges (Benzocaine/Menthol 1 Lozenge) 1 lozenge PO PRN PRN PRN Reason: Sore Throat Tizanidine HCl (Tizanidine 4 Mg Tablet) 4 mg PO Q6HP PRN PRN Reason: muscle spasticity Trazodone HCl (Trazodone Hcl 50 Mg Tablet) 50 mg PO HSP PRN PRN Reason: Insomnia A/P Assessment and plan (1) Femur fracture, right: Status: Acute Comment: Mobilize with PT eval by hospitalist for increased confusion. Time Spent With Patient Time: Total time spent is greater than 50% in coordination of care (as documented) at patient's floor/unit and/or counseling patient:
[2020-11-17] MEDS: AMITRIPTYLINE 25 MG TABLET PO SCH (08:57)
[2020-11-17] MEDS: DOCUSATE SODIUM 100 MG CAPSULE PO SCH ×2 (08:57→20:29)
[2020-11-17] MEDS ORDERED: FUROSEMIDE 40 MG/4 ML VIAL IV ONE (09:12)
--- NOTE | 2020-11-17 10:58 | Internal Med Progress Note ---
SUBJECTIVE Subjective Patient information: Note initiated : 11/17/20 at 10:54 am Service Date, if different from initiated Date: [] Patient: Masha Berger a 65 y/o F admitted on 11/14/20 for ground level fall. Chief Complaint: [] Interval history: Ms. Berger is a 65 year old F with type 2 diabetes mellitus, insulin-dependent, mixed dyslipidemia, recent right hip fracture status post ORIF, presenting with fall and refracturing of her right femur. Patient had an episode for 2 and half weeks ago status post right hip/femur ORIF. She was doing well after the surgery until last night when she sustained another fall at home when she was walking and all of a sudden her legs just gave out. She denies any loss of consciousness. She was taken back to our hospital ED and x- ray of the hip and right leg shows displaced fracture of the right femoral diaphysis at the level of the prosthetic femoral stem. She is currently complaining of 10 out of 10, constant, sharp pain localized in her right lateral thigh. Denies any shortness of breath or chest pain. Denies any lethargy or confusions. 5/-overnight distended abdomen with multiple episodes of emesis. NG tube placed with over 2000 cc bilious output. Abdominal imaging reveals ileus pa ttern. Hemoglobin down to 7.9. Started on PPI due to blood-tinged gastric aspirate. Surgery today. Repeat hemoglobin down to 7.4. 2 units PRBC transfusion ordered. Will review postop. Family at bedside. Discussed plan of treatment. 11/16- Ms. Berger is a 65 year old F wit Patient postop day 2. Hemoglobin gradually downtrending down to 7.2. Additional 2 units blood transfusion. On IV PPI. Confused Head CT ordered. and disoriented this morning. Surgery consulted for evaluation of ileus/upper GI bleed. NG tube draining mixed bile and bloody aspirate 11/17-patient refused morning blood draws however responding well to diuretics. Over 2000 cc net negative in the last 6 hours. Feeling better. Remains intermittently confused. Son at bedside. No NG output. Start clears and clamp NG. No overnight fever chills. CHF on chest imaging responding to diuretics. Stable labs and hemodynamics. Currently on room air. Constitutional Vitals: Vital Signs Temp Pulse Resp BP Pulse Ox 97.9 F 82 16 157/84 94 11/17/20 07:44 11/17/20 07:44 11/17/20 07:44 11/17/20 07:44 11/17/20 07:44 Period Temp Pulse Resp BP Sys/Persaud Pulse Ox Last 24 Hr 97.9 F-98.9 F 82-102 16-18 156-180/78-87 93-100 Intake and Output 11/16/20 11/17/20 11/17/20 21:59 05:59 13:59 Intake Total 0 1000 1000 Output Total 1770 1125 0 Balance -1770 -125 1000 Weight 88.224 kg Alert but confused and paranoid Nonlabored breathing NG minimal output anxious nondistended abdomen Lower extremity lymphedema improved Intake & Output: Intake & Output 11/16/20 11/17/20 11/17/20 21:59 05:59 13:59 Intake Total 0 1000 1000 Output Total 1770 1125 0 Balance -1770 -125 1000 Weight 88.224 kg Intake: IV 1000 1000 Dextrose 5%-Lactated Ringers 1, 1000 1000 000 ml @ 100 mls/hr IV .Q10H [facility] Rx#:[id number] Oral 0 Tube Feeding 0 0 0 Output: Gastric Drainage 120 0 0 Left Nare 120 0 0 Urine Catheter Amount 1650 1125 Other: Urine Appearance Clear Uretheral (Petit) Clear Clear Urine Color Dark Urszula Blood Tinged Dark Yellow Blood Tinged Uretheral (Petit) Straw Dark Yellow Urine Odor Normal Normal Uretheral (Petit) Normal OBJ DATA Labs CBC & Chem 7: 11/16/20 10:44 11/15/20 06:24 Labs: Abnormal Lab Results 11/16/20 11/16/20 11/16/20 10:44 06:00 01:09 WBC 15.3 H RBC 3.04 L Hgb 8.1 L 7.2 L 7.6 L Hct 25.7 L 17.3 L* 21.3 L MCH MCHC RDW 16.5 H Neut % (Auto) 85.3 H Lymph % (Auto) 9.2 L Lymph # (Auto) 1.41 L Absolute Neutrophils 13.06 H Carbon Dioxide Anion Gap Glucose 11/15/20 11/15/20 11/15/20 21:04 17:12 06:24 WBC RBC Hgb 8.0 L 8.3 L Hct 19.1 L* 23.0 L MCH MCHC RDW Neut % (Auto) Lymph % (Auto) Lymph # (Auto) Absolute Neutrophils Carbon Dioxide 34 H Anion Gap 7.0 L Glucose 170 H 11/15/20 11/15/20 06:24 00:49 WBC RBC 2.98 L Hgb 7.4 L 7.9 L Hct 25.2 L 19.4 L* MCH 24.8 L MCHC 29.4 L RDW 16.9 H Neut % (Auto) 80.7 H Lymph % (Auto) 12.9 L Lymph # (Auto) 1.16 L Absolute Neutrophils Carbon Dioxide Anion Gap Glucose Meds: Medications Acetaminophen (Acetaminophen 325 Mg Tablet) 650 mg PO Q6HP PRN; Protocol PRN Reason: Per Pain Protocol/Fever > 101 Amitriptyline HCl (Amitriptyline 25 Mg Tablet) 50 mg PO DAILY [facility] Last Admin: 11/17/20 08:57 Dose: Not Given Documented by: Atorvastatin Calcium (Atorvastatin 20 Mg Tablet) 20 mg PO QHS [facility] Last Admin: 11/16/20 21:07 Dose: Not Given Documented by: Bisacodyl (Bisacodyl 10 Mg Supp.Rect) [address] Q2-3DAYS PRN PRN Reason: Constipation Dextrose (Dextrose 50% 50 Ml Vial) 0 ml IV UD PRN PRN Reason: Hypoglycemia Diagnostic Test (Pha) (Accu-Chek 1 Each Strip) 1 each FS Q6 [facility] Last Admin: 11/17/20 06:05 Dose: 1 each Documented by: Docusate Sodium (Docusate Sodium 100 Mg Capsule) 100 mg PO BID [facility] Last Admin: 11/17/20 08:57 Dose: Not Given Documented by: Glucose (Dextrose 31 Gm Oral.Susp) 15 gm PO PRN PRN PRN Reason: Hypoglycemia Hydromorphone HCl (Hydromorphone 1 Mg/Ml Syringe) 1 mg IV Q2HP PRN; Protocol PRN Reason: Per Pain Protocol Last Admin: 11/17/20 07:25 Dose: 1 mg Documented by: Insulin Human Lispro (Insulin Lispro 1 Unit/0.01 Ml Unit) 0 unit SQ Q6 [facility]; Protocol Last Admin: 11/17/20 06:12 Dose: 1 units Documented by: Lorazepam (Lorazepam 2 Mg/Ml Vial) 0.5 mg IV Q6HP PRN PRN Reason: ANXIETY/SEDATION Last Admin: 11/17/20 00:47 Dose: 0.5 mg Documented by: Magnesium Hydroxide (Magnesium Hydroxide 30 Ml Oral.Susp) 30 ml PO BIDP PRN PRN Reason: Constipation Ondansetron HCl (Ondansetron 4 Mg/2 Ml Vial) 4 mg IV Q6HP PRN PRN Reason: Nausea And Vomiting Last Admin: 11/16/20 07:18 Dose: 4 mg Documented by: Oxycodone HCl (Oxycodone Hcl 5 Mg Tablet) 5 mg PO Q4HP PRN; Protocol PRN Reason: Per Pain Protocol Last Admin: 11/14/20 20:45 Dose: 5 mg Documented by: Pantoprazole Sodium (Pantoprazole 40 Mg Vial) 40 mg IV BIDAC [facility] Last Admin: 11/17/20 07:23 Dose: 40 mg Documented by: Polyethylene Glycol (Polyethylene Glycol 3350 17 Gm Packet) 17 gm PO DAILYP PRN PRN Reason: Constipation Promethazine HCl (Promethazine 25 Mg/Ml Vial) 12.5 mg IV Q6HP PRN PRN Reason: Nausea And Vomiting Last Admin: 11/14/20 23:20 Dose: 12.5 mg Documented by: Senna (Sennosides 1 Tablet) 2 tab PO HS [facility] Last Admin: 11/16/20 21:07 Dose: Not Given Documented by: Sodium Biphosphate/Sodium Phosphate (Fleets Adult Enema) [address] Q3-4DAYS PRN PRN Reason: Constipation Sodium Chloride (0.9 % Sodium Chloride 10 Ml Syringe) 10 ml IV Q8 [facility] Last Admin: 11/17/20 05:58 Dose: 10 ml Documented by: Throat Lozenges (Benzocaine/Menthol 1 Lozenge) 1 lozenge PO PRN PRN PRN Reason: Sore Throat Tizanidine HCl (Tizanidine 4 Mg Tablet) 4 mg PO Q6HP PRN PRN Reason: muscle spasticity Trazodone HCl (Trazodone Hcl 50 Mg Tablet) 50 mg PO HSP PRN PRN Reason: Insomnia A/P Narrative A/P Narrative: * Right femur fracture/fall-postop day 2. Managed per orthopedics including pain management/postop therapies and nursing care * Ileus/recurrent nausea clinical resolution noted. Clamp NG and start clears. Surgery on board * Acute blood loss anemia status post 4 units PRBC. No further GI bleed. Continue PPI. Patient refused blood draws and hence hemoglobin cannot be trended * Mild CHF on chest imaging-secondary to volume overload from crystalloid and colloid challenges. Responding well to diuretics. * Postop delirium -negative head CT, gradual improvement noted. ontinue avoiding sedative hypnotics. No evidence of photophobia/signs of meningismus . * Type II DM continue sliding scale insulin, CCD * Hyperlipidemia continue statin * History of chronic pain continue prior home medications postop * Prophylaxis SCDs * Full code Plan * Clamp NG and start clears * Continue PPI twice daily * Pre-existing medical condition management home medications * Gentle diuresis * Post hip fracture care per orthopedics along with early mobilization/PT OT * Case management coordinate SNF transfer Time Spent With Patient Time: Total time spent is greater than 50% in coordination of care (as documented) at patient's floor/unit and/or counseling patient: QUALITY Stroke Symptom Onset Unknown: No VTE Deep Vein Thrombosis/Pulmonary Embolism Present on Admission: No
[2020-11-17] MEDS: oxyCODONE HCL 5 MG TABLET PO PRN (13:40)
[2020-11-17] MEDS ORDERED: PEG 3350/NA SULF,BICARB,CL/KCL 4,000 ML ORAL.SOL PO ONE (14:23)
--- NOTE | 2020-11-17 14:23 | General Surgery Progress Note ---
SUBJECTIVE Subjective Patient information: Note initiated : 11/17/20 at 2:19 pm Service Date, if different from initiated Date: [] Patient: Masha Berger 65 y/o F admitted on 11/14/20 for ground level fall. Chief Complaint: [] Interval history: HD 3 GI bleed, ileus, no further blood per NGT, however, H/H did not raise 4 units with 4 units of blood. Patient and son unclear of last colonoscopy Constitutional Vitals: Vital Signs Temp Pulse Resp BP Pulse Ox 97.9 F 82 16 157/84 94 11/17/20 07:44 11/17/20 07:44 11/17/20 07:44 11/17/20 07:44 11/17/20 12:00 Period Temp Pulse Resp BP Sys/Persaud Pulse Ox Last 24 Hr 97.9 F-98.8 F 82-98 16-18 157-180/81-87 93-97 Intake and Output 11/17/20 11/17/20 11/17/20 05:59 13:59 21:59 Intake Total 1000 1000 Output Total 1125 2100 Balance -125 -1100 Intake & Output: Intake & Output 11/17/20 11/17/20 11/17/20 05:59 13:59 21:59 Intake Total 1000 1000 Output Total 1125 2100 Balance -125 -1100 Intake: IV 1000 1000 Dextrose 5%-Lactated Ringers 1, 1000 1000 000 ml @ 100 mls/hr IV .Q10H [facility] Rx#:[id number] Oral 0 Tube Feeding 0 0 Output: Gastric Drainage 0 0 Left Nare 0 0 Urine Catheter Amount 1125 2100 Other: Urine Appearance Clear Uretheral (Petit) Clear Urine Color Blood Tinged Dark Yellow Uretheral (Petit) Dark Yellow Urine Odor Normal Uretheral (Petit) Normal General appearance: cooperative and no acute distress GI/Abdominal GI/Abdominal exam: Present soft; Absent distended A/P Narrative A/P Narrative: GI bleed - plan EGD/colonoscopy tomorrow Ileus, will use NGT for prep then can D/c NPO at midnight Time Spent With Patient Time: Total time spent is greater than 50% in coordination of care (as documented) at patient's floor/unit and/or counseling patient:
[2020-11-17] MEDS ORDERED: FUROSEMIDE 20 MG/2 ML VIAL IV ONE (16:59)
[2020-11-17] MEDS: ATORVASTATIN 20 MG TABLET PO SCH (20:29)
[2020-11-17] MEDS: SENNOSIDES 1 TABLET PO SCH (20:29)
[2020-11-18] MEDS: ONDANSETRON 4 MG/2 ML VIAL IV PRN (00:17)
[2020-11-18] MEDS: INSULIN LISPRO 1 UNIT/0.01 ML UNIT SQ SCH ×5 (00:21→23:30)
[2020-11-18] MEDS: HYDROmorphone 1 MG/ML SYRINGE IV PRN ×2 (02:22→06:46)
[2020-11-18] MEDS: 0.9 % SODIUM CHLORIDE 10 ML SYRINGE IV SCH ×3 (06:10→20:08)
[2020-11-18] MEDS ORDERED: KETAMINE 50 MG/ML ML IV PRN (06:26)
[2020-11-18] MEDS ORDERED: MIDAZOLAM 2 MG/2 ML VIAL IV SCH (06:30)
[2020-11-18] MEDS ORDERED: PROPOFOL 200 MG/20 ML VIAL IV SCH (06:30)
[2020-11-18] MEDS: DOCUSATE SODIUM 100 MG CAPSULE PO SCH ×2 (08:04→20:01)
[2020-11-18] MEDS: AMITRIPTYLINE 25 MG TABLET PO SCH (08:04)
[2020-11-18] MEDS: PANTOPRAZOLE 40 MG VIAL IV SCH ×2 (08:22→17:02)
[2020-11-18 08:46] LABS: Basophils # (Auto) 0.05 K/mcL (0.00-0.20); Basophils % (Auto) 0.4 % (0.0-2.0); Eosinophils # (Auto) 0.06 K/mcL (0.00-0.70); Eosinophils % (Auto) 0.5 % (0.0-7.0); Hematocrit 28.1 % (36.0-48.0); Hemoglobin 8.9 g/dL (12.0-15.0); Lymphocytes # (Auto) 1.38 K/mcL (1.50-4.80); Lymphocytes % (Auto) 11.9 % (15.0-49.0); Mean Cell Volume 83.6 fL (80.0-100.0); Mean Corpuscular HGB Conc 31.7 g/dL (31.0-36.0); Mean Platelet Volume 9.2 fL (7.4-10.4); Monocytes # (Auto) 0.59 K/mcL (0.10-0.90); Monocytes % (Auto) 5.1 % (1.0-12.0); Neutrophils % (Auto) 82.1 % (38.0-78.0); Platelet Count 214 K/mcL (140-440); RBC 3.36 M/mcL (4.00-5.20); Red Cell Distribution Width 15.9 % (11.5-14.5); WBC 11.6 K/mcL (4.5-11.0)
--- NOTE | 2020-11-18 10:09 | EGD Procedure Note ---
EGD Procedure Notes Procedure Information Patient information: Note initiated : 11/18/20 at 10:07 am Service Date: 11/14/20 Patient: Masha Berger 65 y/o F admitted on 11/14/20 for ground level fall. Pre-op diagnosis general: GI bleed, gastricult positive Post-Op Diagnosis general: Same Procedure: Esophogogastroduodenoscopy Procedure Narrative: After risk benefits and alternatives to the procedure were discussed with the patient at length she verbalized understanding and desire to continue with the procedure. Patient was taken to endoscopy. Surgical timeout was taken to verify patient and procedure being performed sedation was administered with 2 mg of Versed and 200 mcg of propofol. An adult gastroscope was entered and advanced under direct vision into the seco nd portion of the duodenum. The antrum was fully inspected, the scope was retroflexed in the stomach. Full examination revealed gastric ulcer in the body of the stomach, evidence of old bleed without current bleed. The GE junction was at thirty-five cm and the esophagus was normal on full exam. Patient tolerated procedure well. Assessment: Evidence of gastric ulcer, no active bleed identified Image EGD: 1. Scope to the second portion the duodenum 2. Evidence of gastric ulcer without active bleed 3. Normal retroflexion
--- NOTE | 2020-11-18 10:10 | Colonoscopy Procedure Note ---
Colonoscopy Procedure Notes Procedure Information Patient information: Note initiated : 11/18/20 at 10:09 am Service Date: 11/14/20 Patient: Masha Berger 65 y/o F admitted on 11/14/20 for ground level fall. Pre-op diagnosis general: GI bleed Post-op diagnosis general: Inadequate prep, incomplete colonoscopy Procedure narrative: After risk benefits and alternatives to the procedure were discussed with the patient at length she verbalized understanding and desire to continue with the procedure. Patient was taken to endoscopy and placed supine on the endoscopy table. Conscious sedation was administered throughout the case, see EGD for total amount. Digital rectal exam was performed which was within normal limits. An adult colonoscope was advanced into the sigmoid, but could not be advanced any further due to poor colonic prep with gross fecal matter. Retroflexion in the rectum was within normal limits. Assessment: Incomplete colonoscopy secondary to poor prep. Recommend repeat colonoscopy in 6 to 8 weeks when patient follows up for repeat EGD.
--- NOTE | 2020-11-18 14:33 | Internal Med Progress Note ---
SUBJECTIVE Subjective Patient information: Note initiated : 11/18/20 at 2:30 pm Service Date, if different from initiated Date: [] Patient: Masha Berger a 65 y/o F admitted on 11/14/20 for ground level fall. Chief Complaint: [] Interval history: Ms. Berger is a 65 year old F with type 2 diabetes mellitus, insulin-dependent, mixed dyslipidemia, recent right hip fracture status post ORIF, presenting with fall and refracturing of her right femur. Patient had an episode for 2 and half weeks ago status post right hip/femur ORIF. She was doing well after the surgery until last night when she sustained another fall at home when she was walking and all of a sudden her legs just gave out. She denies any loss of consciousness. She was taken back to our hospital ED and x- ray of the hip and right leg shows displaced fracture of the right femoral diaphysis at the level of the prosthetic femoral stem. She is currently complaining of 10 out of 10, constant, sharp pain localized in her right lateral thigh. Denies any shortness of breath or chest pain. Denies any lethargy or confusions. 11/15-overnight distended abdomen with multiple episodes of emesis. NG tube placed with over 2000 cc bilious output. Abdominal imaging reveals ileus pat tern. Hemoglobin down to 7.9. Started on PPI due to blood-tinged gastric aspirate. Surgery today. Repeat hemoglobin down to 7.4. 2 units PRBC transfusion ordered. Will review postop. Family at bedside. Discussed plan of treatment. 11/16- Ms. Berger is a 65 year old F wit Patient postop day 2. Hemoglobin gradually downtrending down to 7.2. Additional 2 units blood transfusion. On IV PPI. Confused Head CT ordered. and disoriented this morning. Surgery consulted for evaluation of ileus/upper GI bleed. NG tube draining mixed bile and bloody aspirate 11/17-patient refused morning blood draws however responding well to diuretics. Over 2000 cc net negative in the last 6 hours. Feeling better. Remains intermittently confused. Son at bedside. No NG output. Start clears and clamp NG. No overnight fever chills. CHF on chest imaging responding to diuretics. Stable labs and hemodynamics. Currently on room air. 11/18-patient doing a lot better. Mentation improved. Status post upper endoscopy/colonoscopy. Inadequate prep and will need repeat colonoscopy in 6 to 8 weeks, no active ulcer or GI bleed noted upper endoscopy. Stable labs and hemodynamics. Hemoglobin is 8.9, continue physical therapy. Anticipate discharge to SNF. Case management coordinating. Constitutional Vitals: Vital Signs Temp Pulse Resp BP Pulse Ox 98.9 F 86 18 160/79 97 11/18/20 11:53 11/18/20 11:53 11/18/20 11:53 11/18/20 11:53 11/18/20 11:53 Period Temp Pulse Resp BP Sys/Persaud Pulse Ox Last 24 Hr 97.5 F-99.4 F 79-103 16-20 121-160/52-86 92-100 Intake and Output 11/18/20 11/18/20 11/18/20 05:59 13:59 21:59 Intake Total 1350 942 Output Total 1 2 Balance 1349 940 Weight 88.224 kg Patient Weight 11/19/20 05:59 Weight 88.224 kg alert oriented Nonlabored breathing No anxiety No pallor Nondistended abdomen Intake & Output: Intake & Output 11/18/20 11/18/20 11/18/20 05:59 13:59 21:59 Intake Total 1350 942 Output Total 1 2 Balance 1349 940 Weight 88.224 kg Intake: IV 942 Dextrose 5%-Lactated Ringers 1, 942 000 ml @ 100 mls/hr IV .Q10H [facility] Rx#:[id number] Oral 1350 Output: # of times incontinent of urine 1 2 Other: Urine Appearance Clear Urine Color Pale Urine Odor Normal Stool Size Large Large Stool Color Brown Brown Stool Consistency Liquid Soft Loose Liquid # Voids 1 # of times incontinent of 1 1 Bowels OBJ DATA Labs CBC & Chem 7: 11/18/20 06:34 11/15/20 06:24 Labs: Abnormal Lab Results 11/18/20 11/16/20 11/16/20 06:34 10:44 06:00 WBC 11.6 H 15.3 H RBC 3.36 L 3.04 L Hgb 8.9 L 8.1 L 7.2 L Hct 28.1 L 25.7 L 17.3 L* RDW 15.9 H 16.5 H Neut % (Auto) 82.1 H 85.3 H Lymph % (Auto) 11.9 L 9.2 L Lymph # (Auto) 1.38 L 1.41 L Absolute Neutrophils 9.51 H 13.06 H 11/16/20 11/15/20 11/15/20 01:09 21:04 17:12 WBC RBC Hgb 7.6 L 8.0 L 8.3 L Hct 21.3 L 19.1 L* 23.0 L RDW Neut % (Auto) Lymph % (Auto) Lymph # (Auto) Absolute Neutrophils Meds: Medications Acetaminophen (Acetaminophen 325 Mg Tablet) 650 mg PO Q6HP PRN; Protocol PRN Reason: Per Pain Protocol/Fever > 101 Amitriptyline HCl (Amitriptyline 25 Mg Tablet) 50 mg PO DAILY [facility] Last Admin: 11/18/20 08:04 Dose: Not Given Documented by: Atorvastatin Calcium (Atorvastatin 20 Mg Tablet) 20 mg PO QHS [facility] Last Admin: 11/17/20 20:29 Dose: 20 mg Documented by: Bisacodyl (Bisacodyl 10 Mg Supp.Rect) 10 mg CA Q2-3DAYS PRN PRN Reason: Constipation Dextrose (Dextrose 50% 50 Ml Vial) 0 ml IV UD PRN PRN Reason: Hypoglycemia Diagnostic Test (Pha) (Accu-Chek 1 Each Strip) 1 each FS Q6 [facility] Last Admin: 11/18/20 11:39 Dose: 1 each Documented by: Docusate Sodium (Docusate Sodium 100 Mg Capsule) 100 mg PO BID [facility] Last Admin: 11/18/20 08:04 Dose: Not Given Documented by: Glucose (Dextrose 31 Gm Oral.Susp) 15 gm PO PRN PRN PRN Reason: Hypoglycemia Hydromorphone HCl (Hydromorphone 1 Mg/Ml Syringe) 1 mg IV Q2HP PRN; Protocol PRN Reason: Per Pain Protocol Last Admin: 11/18/20 06:46 Dose: 1 mg Documented by: Insulin Human Lispro (Insulin Lispro 1 Unit/0.01 Ml Unit) 0 unit SQ Q6 [facility]; Protocol Last Admin: 11/18/20 11:40 Dose: Not Given Documented by: Lorazepam (Lorazepam 2 Mg/Ml Vial) 0.5 mg IV Q6HP PRN PRN Reason: ANXIETY/SEDATION Last Admin: 11/17/20 00:47 Dose: 0.5 mg Documented by: Magnesium Hydroxide (Magnesium Hydroxide 30 Ml Oral.Susp) 30 ml PO BIDP PRN PRN Reason: Constipation Ondansetron HCl (Ondansetron 4 Mg/2 Ml Vial) 4 mg IV Q6HP PRN PRN Reason: Nausea And Vomiting Last Admin: 11/18/20 00:17 Dose: 4 mg Documented by: Oxycodone HCl (Oxycodone Hcl 5 Mg Tablet) 5 mg PO Q4HP PRN; Protocol PRN Reason: Per Pain Protocol Last Admin: 11/17/20 13:40 Dose: 5 mg Documented by: Pantoprazole Sodium (Pantoprazole 40 Mg Vial) 40 mg IV BIDAC [facility] Last Admin: 11/18/20 08:22 Dose: 40 mg Documented by: Polyethylene Glycol (Polyethylene Glycol 3350 17 Gm Packet) 17 gm PO DAILYP PRN PRN Reason: Constipation Promethazine HCl (Promethazine 25 Mg/Ml Vial) 12.5 mg IV Q6HP PRN PRN Reason: Nausea And Vomiting Last Admin: 11/14/20 23:20 Dose: 12.5 mg Documented by: Senna (Sennosides 1 Tablet) 2 tab PO [facility] Last Admin: 11/17/20 20:29 Dose: 2 tab Documented by: Sodium Biphosphate/Sodium Phosphate (Fleets Adult Enema) 1 dose CA Q3-4DAYS PRN PRN Reason: Constipation Sodium Chloride (0.9 % Sodium Chloride 10 Ml Syringe) 10 ml IV Q8 [facility] Last Admin: 11/18/20 14:12 Dose: 10 ml Documented by: Throat Lozenges (Benzocaine/Menthol 1 Lozenge) 1 lozenge PO PRN PRN PRN Reason: Sore Throat Tizanidine HCl (Tizanidine 4 Mg Tablet) 4 mg PO Q6HP PRN PRN Reason: muscle spasticity Trazodone HCl (Trazodone Hcl 50 Mg Tablet) 50 mg PO HSP PRN PRN Reason: Insomnia A/P Narrative A/P Narrative: * Right femur fracture/fall-postop day 3. Managed per orthopedics including pain management/postop therapies and nursing care * Ileus/recurrent nausea clinical resolution noted. Status post upper endoscopy. NG discontinued. On oral diet per surgery * Acute blood loss anemia status post 4 units PRBC. Hemoglobin stable at 8.9. Upper endoscopy no evidence of ulcer or active hemorrhage * Mild CHF on chest imaging-secondary to volume overload from crystalloid . Responded well to diuretics. Resolved * Postop delirium -resolved * Type II DM continue sliding scale insulin, CCD * Hyperlipidemia continue statin * History of chronic pain continue prior home medications postop * Prophylaxis SCDs * Full code Plan * Diet per surgery * Twice daily PPI * Pre-existing medical condition management home medications * Post hip fracture care per orthopedics along with early mobilization/PT OT * Case management coordinate SNF transfer Time Spent With Patient Time: Total time spent is greater than 50% in coordination of care (as documented) at patient's floor/unit and/or counseling patient: QUALITY Stroke Symptom Onset Unknown: No VTE Deep Vein Thrombosis/Pulmonary Embolism Present on Admission: No
[2020-11-18] MEDS: oxyCODONE HCL 5 MG TABLET PO PRN ×2 (19:57→23:31)
[2020-11-18] MEDS: tiZANidine 4 MG TABLET PO PRN (20:00)
[2020-11-18] MEDS: ATORVASTATIN 20 MG TABLET PO SCH (20:01)
[2020-11-18] MEDS: SENNOSIDES 1 TABLET PO SCH (20:02)
[2020-11-18] MEDS: traZODone HCL 50 MG TABLET PO PRN (23:31)
[2020-11-19] MEDS: oxyCODONE HCL 5 MG TABLET PO PRN ×4 (04:51→21:09)
[2020-11-19] MEDS: INSULIN LISPRO 1 UNIT/0.01 ML UNIT SQ SCH ×3 (05:51→16:39)
[2020-11-19] MEDS: 0.9 % SODIUM CHLORIDE 10 ML SYRINGE IV SCH ×3 (05:52→20:13)
[2020-11-19 07:35] LABS: Basophils # (Auto) 0.06 K/mcL (0.00-0.20); Basophils % (Auto) 0.6 % (0.0-2.0); Eosinophils # (Auto) 0.12 K/mcL (0.00-0.70); Eosinophils % (Auto) 1.2 % (0.0-7.0); Hematocrit 28.2 % (36.0-48.0); Hemoglobin 9.2 g/dL (12.0-15.0); Lymphocytes % (Auto) 16.3 % (15.0-49.0); Mean Cell Volume 82.2 fL (80.0-100.0); Mean Corpuscular HGB Conc 32.6 g/dL (31.0-36.0); Mean Platelet Volume 8.7 fL (7.4-10.4); Monocytes # (Auto) 0.59 K/mcL (0.10-0.90); Neutrophils % (Auto) 75.9 % (38.0-78.0); Platelet Count 211 K/mcL (140-440); RBC 3.43 M/mcL (4.00-5.20); Red Cell Distribution Width 15.5 % (11.5-14.5); WBC 9.8 K/mcL (4.5-11.0)
[2020-11-19] MEDS: DOCUSATE SODIUM 100 MG CAPSULE PO SCH ×2 (09:08→20:12)
[2020-11-19] MEDS: PANTOPRAZOLE 40 MG VIAL IV SCH (09:09)
[2020-11-19] MEDS: AMITRIPTYLINE 25 MG TABLET PO SCH (09:09)
--- NOTE | 2020-11-19 09:59 | Orthopedic Progress Note ---
SUBJECTIVE Subjective Patient information: Note initiated : 11/19/20 at 9:57 am Service Date, if different from initiated Date: [] Patient: Masha Berger 65 y/o F admitted on 11/14/20 for ground level fall. Chief Complaint: no c/o. Constitutional Vitals: Vital Signs Temp Pulse Resp BP Pulse Ox 98.6 F 84 18 158/78 96 11/19/20 06:46 11/19/20 06:46 11/19/20 06:46 11/19/20 06:46 11/19/20 06:46 Period Temp Pulse Resp BP Sys/Persaud Pulse Ox Last 24 Hr 98.3 F-98.9 F 76-86 12-18 135-160/71-84 93-97 Intake and Output 11/18/20 11/19/20 11/19/20 21:59 05:59 13:59 Intake Total 400 120 Output Total 2 2 Balance -2 398 120 Weight 194 lb 8 oz 193 lb 1.6 oz Intake & Output: Intake & Output 11/18/20 11/19/20 11/19/20 21:59 05:59 13:59 Intake Total 400 120 Output Total 2 2 Balance -2 398 120 Weight 194 lb 8 oz 193 lb 1.6 oz Intake: Oral 400 120 Output: # of times incontinent of urine 2 2 Other: Meal Breakfast Percent of Meal Consumed 0% Feeding Ability Assist with Tray Set Up Stool Size Small Stool Color Brown Stool Consistency Loose # Voids 1 # of times incontinent of 1 Bowels Bandages c/d/i NVI-distal OBJ DATA Labs CBC & Chem 7: 11/19/20 06:02 11/15/20 06:24 Labs: Abnormal Lab Results 11/19/20 11/18/20 11/16/20 06:02 06:34 10:44 WBC 11.6 H 15.3 H RBC 3.43 L 3.36 L 3.04 L Hgb 9.2 L 8.9 L 8.1 L Hct 28.2 L 28.1 L 25.7 L RDW 15.5 H 15.9 H 16.5 H Neut % (Auto) 82.1 H 85.3 H Lymph % (Auto) 11.9 L 9.2 L Lymph # (Auto) 1.38 L 1.41 L Absolute Neutrophils 9.51 H 13.06 H Meds: Medications Acetaminophen (Acetaminophen 325 Mg Tablet) 650 mg PO Q6HP PRN; Protocol PRN Reason: Per Pain Protocol/Fever > 101 Amitriptyline HCl (Amitriptyline 25 Mg Tablet) 50 mg PO DAILY [facility] Last Admin: 11/19/20 09:09 Dose: 50 mg Documented by: Atorvastatin Calcium (Atorvastatin 20 Mg Tablet) 20 mg PO QHS [facility] Last Admin: 11/18/20 20:01 Dose: 20 mg Documented by: Bisacodyl (Bisacodyl 10 Mg Supp.Rect) 10 mg IN Q2-3DAYS PRN PRN Reason: Constipation Dextrose (Dextrose 50% 50 Ml Vial) 0 ml IV UD PRN PRN Reason: Hypoglycemia Diagnostic Test (Pha) (Accu-Chek 1 Each Strip) 1 each FS Q6 [facility] Last Admin: 11/19/20 05:51 Dose: 1 each Documented by: Docusate Sodium (Docusate Sodium 100 Mg Capsule) 100 mg PO BID [facility] Last Admin: 11/19/20 09:08 Dose: 100 mg Documented by: Glucose (Dextrose 31 Gm Oral.Susp) 15 gm PO PRN PRN PRN Reason: Hypoglycemia Hydromorphone HCl (Hydromorphone 1 Mg/Ml Syringe) 1 mg IV Q2HP PRN; Protocol PRN Reason: Per Pain Protocol Last Admin: 11/18/20 06:46 Dose: 1 mg Documented by: Insulin Human Lispro (Insulin Lispro 1 Unit/0.01 Ml Unit) 0 unit SQ Q6 [facility]; Protocol Last Admin: 11/19/20 05:51 Dose: Not Given Documented by: Lorazepam (Lorazepam 2 Mg/Ml Vial) 0.5 mg IV Q6HP PRN PRN Reason: ANXIETY/SEDATION Last Admin: 11/17/20 00:47 Dose: 0.5 mg Documented by: Magnesium Hydroxide (Magnesium Hydroxide 30 Ml Oral.Susp) 30 ml PO BIDP PRN PRN Reason: Constipation Ondansetron HCl (Ondansetron 4 Mg/2 Ml Vial) 4 mg IV Q6HP PRN PRN Reason: Nausea And Vomiting Last Admin: 11/18/20 00:17 Dose: 4 mg Documented by: Oxycodone HCl (Oxycodone Hcl 5 Mg Tablet) 5 mg PO Q4HP PRN; Protocol PRN Reason: Per Pain Protocol Last Admin: 11/19/20 09:08 Dose: 5 mg Documented by: Pantoprazole Sodium (Pantoprazole 40 Mg Vial) 40 mg IV BIDAC [facility] Last Admin: 11/19/20 09:09 Dose: Not Given Documented by: Polyethylene Glycol (Polyethylene Glycol 3350 17 Gm Packet) 17 gm PO DAILYP PRN PRN Reason: Constipation Promethazine HCl (Promethazine 25 Mg/Ml Vial) 12.5 mg IV Q6HP PRN PRN Reason: Nausea And Vomiting Last Admin: 11/14/20 23:20 Dose: 12.5 mg Documented by: Senna (Sennosides 1 Tablet) 2 tab PO HS [facility] Last Admin: 11/18/20 20:02 Dose: Not Given Documented by: Sodium Biphosphate/Sodium Phosphate (Fleets Adult Enema) 1 dose IN Q3-4DAYS PRN PRN Reason: Constipation Sodium Chloride (0.9 % Sodium Chloride 10 Ml Syringe) 10 ml IV Q8 [facility] Last Admin: 11/19/20 05:52 Dose: Not Given Documented by: Throat Lozenges (Benzocaine/Menthol 1 Lozenge) 1 lozenge PO PRN PRN PRN Reason: Sore Throat Tizanidine HCl (Tizanidine 4 Mg Tablet) 4 mg PO Q6HP PRN PRN Reason: muscle spasticity Last Admin: 11/18/20 20:00 Dose: 4 mg Documented by: Trazodone HCl (Trazodone Hcl 50 Mg Tablet) 50 mg PO HSP PRN PRN Reason: Insomnia Last Admin: 11/18/20 23:31 Dose: 50 mg Documented by: A/P Assessment and plan (1) Femur fracture, right: Status: Acute Comment: Mobilize with PT toe touch weight bearing. f/u in 10 days at [facility]. Leave dressing intact til f/u. signing out ortho. Time Spent With Patient Time: Total time spent is greater than 50% in coordination of care (as documented) at patient's floor/unit and/or counseling patient:
--- NOTE | 2020-11-19 10:11 | General Surgery Progress Note ---
SUBJECTIVE Subjective Patient information: Note initiated : 11/19/20 at 10:10 am Service Date, if different from initiated Date: [] Patient: Masha Berger 65 y/o F admitted on 11/14/20 for ground level fall. Chief Complaint: [] Interval history: Status post EGD, colonoscopy yesterday. Colonoscopy incomplete due to poor prep, EGD significant for gastric ulcer without active bleed. Constitutional Vitals: Vital Signs Temp Pulse Resp BP Pulse Ox 98.6 F 84 18 158/78 96 11/19/20 06:46 11/19/20 06:46 11/19/20 06:46 11/19/20 06:46 11/19/20 06:46 Period Temp Pulse Resp BP Sys/Persaud Pulse Ox Last 24 Hr 98.3 F-98.9 F 76-86 12-18 135-160/71-84 93-97 Intake and Output 11/18/20 11/19/20 11/19/20 21:59 05:59 13:59 Intake Total 400 120 Output Total 2 2 Balance -2 398 120 Weight 194 lb 8 oz 193 lb 1.6 oz Intake & Output: Intake & Output 11/18/20 11/19/20 11/19/20 21:59 05:59 13:59 Intake Total 400 120 Output Total 2 2 Balance -2 398 120 Weight 194 lb 8 oz 193 lb 1.6 oz Intake: Oral 400 120 Output: # of times incontinent of urine 2 2 Other: Meal Breakfast Percent of Meal Consumed 0% Feeding Ability Assist with Tray Set Up Stool Size Small Stool Color Brown Stool Consistency Loose # Voids 1 # of times incontinent of 1 Bowels A/P Narrative A/P Narrative: Gastric ulcer without acute bleed. Clear to advance diet as tolerated, continue with GI prophylaxis. Follow-up with me in clinic to schedule repeat EGD and colonoscopy in 6 weeks to document resolution of gastric ulcer. Time Spent With Patient Time: Total time spent is greater than 50% in coordination of care (as documented) at patient's floor/unit and/or counseling patient:
--- NOTE | 2020-11-19 10:17 | Internal Med Progress Note ---
SUBJECTIVE Subjective Patient information: Note initiated : 11/19/20 at 10:14 am Service Date, if different from initiated Date: [] Patient: Masha Berger a 65 y/o F admitted on 11/14/20 for ground level fall. Chief Complaint: [] Interval history: Ms. Berger is a 65 year old F with type 2 diabetes mellitus, insulin-dependent, mixed dyslipidemia, recent right hip fracture status post ORIF, presenting with fall and refracturing of her right femur. Patient had an episode for 2 and half weeks ago status post right hip/femur ORIF. She was doing well after the surgery until last night when she sustained another fall at home when she was walking and all of a sudden her legs just gave out. She denies any loss of consciousness. She was taken back to our hospital ED and x- ray of the hip and right leg shows displaced fracture of the right femoral diaphysis at the level of the prosthetic femoral stem. She is currently complaining of 10 out of 10, constant, sharp pain localized in her right lateral thigh. Denies any shortness of breath or chest pain. Denies any lethargy or confusions. 11/15-overnight distended abdomen with multiple episodes of emesis. NG tube placed with over 2000 cc bilious output. Abdominal imaging reveals ileus pa ttern. Hemoglobin down to 7.9. Started on PPI due to blood-tinged gastric aspirate. Surgery today. Repeat hemoglobin down to 7.4. 2 units PRBC transfusion ordered. Will review postop. Family at bedside. Discussed plan of treatment. 11/16- Ms. Berger is a 65 year old F wit Patient postop day 2. Hemoglobin gradually downtrending down to 7.2. Additional 2 units blood transfusion. On IV PPI. Confused Head CT ordered. and disoriented this morning. Surgery consulted for evaluation of ileus/upper GI bleed. NG tube draining mixed bile and bloody aspirate 11/17-patient refused morning blood draws however responding well to diuretics. Over 2000 cc net negative in the last 6 hours. Feeling better. Remains intermittently confused. Son at bedside. No NG output. Start clears and clamp NG. No overnight fever chills. CHF on chest imaging responding to diuretics. Stable labs and hemodynamics. Currently on room air. 11/18-patient doing a lot better. Mentation improved. Status post upper endoscopy/colonoscopy. Inadequate prep and will need repeat colonoscopy in 6 to 8 weeks, no active ulcer or GI bleed noted upper endoscopy. Stable labs and hemodynamics. Hemoglobin is 8.9, continue physical therapy. Anticipate discharge to SNF. Case management coordinating. 11/19-patient doing a lot better. Son at bedside. Ongoing therapies. Mentation much improved. Pain improved. Tolerating diet. Anticipate SNF transfer on Saturday. Continues to recover. Stable labs and hemodynamics. Hemoglobin 9.2. Constitutional Vitals: Vital Signs Temp Pulse Resp BP Pulse Ox 98.6 F 84 18 158/78 96 11/19/20 06:46 11/19/20 06:46 11/19/20 06:46 11/19/20 06:46 11/19/20 06:46 Period Temp Pulse Resp BP Sys/Persaud Pulse Ox Last 24 Hr 98.3 F-98.9 F 76-86 12-18 135-160/71-84 93-97 Intake and Output 11/18/20 11/19/20 11/19/20 21:59 05:59 13:59 Intake Total 400 120 Output Total 2 2 Balance -2 398 120 Weight 88.224 kg 87.589 kg Alert and respond to commands Nonlabored breathing No anxiety No lymphedema Intake & Output: Intake & Output 11/18/20 11/19/20 11/19/20 21:59 05:59 13:59 Intake Total 400 120 Output Total 2 2 Balance -2 398 120 Weight 88.224 kg 87.589 kg Intake: Oral 400 120 Output: # of times incontinent of urine 2 2 Other: Meal Breakfast Percent of Meal Consumed 0% Feeding Ability Assist with Tray Set Up Stool Size Small Stool Color Brown Stool Consistency Loose # Voids 1 # of times incontinent of 1 Bowels OBJ DATA Labs CBC & Chem 7: 11/19/20 06:02 11/15/20 06:24 Labs: Abnormal Lab Results 11/19/20 11/18/20 11/16/20 06:02 06:34 10:44 WBC 11.6 H 15.3 H RBC 3.43 L 3.36 L 3.04 L Hgb 9.2 L 8.9 L 8.1 L Hct 28.2 L 28.1 L 25.7 L RDW 15.5 H 15.9 H 16.5 H Neut % (Auto) 82.1 H 85.3 H Lymph % (Auto) 11.9 L 9.2 L Lymph # (Auto) 1.38 L 1.41 L Absolute Neutrophils 9.51 H 13.06 H Meds: Medications Acetaminophen (Acetaminophen 325 Mg Tablet) 650 mg PO Q6HP PRN; Protocol PRN Reason: Per Pain Protocol/Fever > 101 Amitriptyline HCl (Amitriptyline 25 Mg Tablet) 50 mg PO DAILY [facility] Last Admin: 11/19/20 09:09 Dose: 50 mg Documented by: Atorvastatin Calcium (Atorvastatin 20 Mg Tablet) 20 mg PO QHS [facility] Last Admin: 11/18/20 20:01 Dose: 20 mg Documented by: Bisacodyl (Bisacodyl 10 Mg Supp.Rect) 10 mg NM Q2-3DAYS PRN PRN Reason: Constipation Dextrose (Dextrose 50% 50 Ml Vial) 0 ml IV UD PRN PRN Reason: Hypoglycemia Diagnostic Test (Pha) (Accu-Chek 1 Each Strip) 1 each FS Q6 [facility] Last Admin: 11/19/20 05:51 Dose: 1 each Documented by: Docusate Sodium (Docusate Sodium 100 Mg Capsule) 100 mg PO BID [facility] Last Admin: 11/19/20 09:08 Dose: 100 mg Documented by: Glucose (Dextrose 31 Gm Oral.Susp) 15 gm PO PRN PRN PRN Reason: Hypoglycemia Hydromorphone HCl (Hydromorphone 1 Mg/Ml Syringe) 1 mg IV Q2HP PRN; Protocol PRN Reason: Per Pain Protocol Last Admin: 11/18/20 06:46 Dose: 1 mg Documented by: Insulin Human Lispro (Insulin Lispro 1 Unit/0.01 Ml Unit) 0 unit SQ Q6 [facility]; Protocol Last Admin: 11/19/20 05:51 Dose: Not Given Documented by: Lorazepam (Lorazepam 2 Mg/Ml Vial) 0.5 mg IV Q6HP PRN PRN Reason: ANXIETY/SEDATION Last Admin: 11/17/20 00:47 Dose: 0.5 mg Documented by: Magnesium Hydroxide (Magnesium Hydroxide 30 Ml Oral.Susp) 30 ml PO BIDP PRN PRN Reason: Constipation Ondansetron HCl (Ondansetron 4 Mg/2 Ml Vial) 4 mg IV Q6HP PRN PRN Reason: Nausea And Vomiting Last Admin: 11/18/20 00:17 Dose: 4 mg Documented by: Oxycodone HCl (Oxycodone Hcl 5 Mg Tablet) 5 mg PO Q4HP PRN; Protocol PRN Reason: Per Pain Protocol Last Admin: 11/19/20 09:08 Dose: 5 mg Documented by: Pantoprazole Sodium (Pantoprazole 40 Mg Vial) 40 mg IV BIDAC [facility] Last Admin: 11/19/20 09:09 Dose: Not Given Documented by: Polyethylene Glycol (Polyethylene Glycol 3350 17 Gm Packet) 17 gm PO DAILYP PRN PRN Reason: Constipation Promethazine HCl (Promethazine 25 Mg/Ml Vial) 12.5 mg IV Q6HP PRN PRN Reason: Nausea And Vomiting Last Admin: 11/14/20 23:20 Dose: 12.5 mg Documented by: Senna (Sennosides 1 Tablet) 2 tab PO HS [facility] Last Admin: 11/18/20 20:02 Dose: Not Given Documented by: Sodium Biphosphate/Sodium Phosphate (Fleets Adult Enema) 1 dose NM Q3-4DAYS PRN PRN Reason: Constipation Sodium Chloride (0.9 % Sodium Chloride 10 Ml Syringe) 10 ml IV Q8 [facility] Last Admin: 11/19/20 05:52 Dose: Not Given Documented by: Throat Lozenges (Benzocaine/Menthol 1 Lozenge) 1 lozenge PO PRN PRN PRN Reason: Sore Throat Tizanidine HCl (Tizanidine 4 Mg Tablet) 4 mg PO Q6HP PRN PRN Reason: muscle spasticity Last Admin: 11/18/20 20:00 Dose: 4 mg Documented by: Trazodone HCl (Trazodone Hcl 50 Mg Tablet) 50 mg PO HSP PRN PRN Reason: Insomnia Last Admin: 11/18/20 23:31 Dose: 50 mg Documented by: A/P Narrative A/P Narrative: * Right femur fracture/fall-postop day 4. Managed per orthopedics including pain management/postop therapies , dressing changes and weightbearing * Ileus/recurrent nausea clinical resolution noted. Status post upper endoscopy. NG discontinued. On oral diet per surgery * Hospital-acquired delirium-clinically resolved * Acute blood loss anemia status post 4 units PRBC. Hemoglobin 9.2 * Suspect upper GI bleed status post endoscopy with no evidence of active bleed. Continuing PPI * Mild CHF on chest imaging-secondary to volume overload from crystalloid . Resolved with diuresis * Type II DM continue sliding scale insulin, CCD * Hyperlipidemia continue statin * History of chronic pain continue prior home medications postop * Prophylaxis SCDs * Full code Plan * Diet advancement as tolerated * Twice daily PPI * Pre-existing medical condition management home medications * Post hip fracture care per orthopedics along with early mobilization/PT OT * Await SNF transfer Time Spent With Patient Time: Total time spent is greater than 50% in coordination of care (as documented) at patient's floor/unit and/or counseling patient: QUALITY Stroke Symptom Onset Unknown: No VTE Deep Vein Thrombosis/Pulmonary Embolism Present on Admission: No
[2020-11-19] MEDS: PANTOPRAZOLE 40 MG TABLET PO SCH (16:39)
[2020-11-19] MEDS: tiZANidine 4 MG TABLET PO PRN (20:11)
[2020-11-19] MEDS: SENNOSIDES 1 TABLET PO SCH (20:12)
[2020-11-19] MEDS: ACETAMINOPHEN 325 MG TABLET PO PRN (20:12)
[2020-11-19] MEDS: ATORVASTATIN 20 MG TABLET PO SCH (20:12)
[2020-11-19] MEDS: traZODone HCL 50 MG TABLET PO PRN (21:43)
[2020-11-20] MEDS: INSULIN LISPRO 1 UNIT/0.01 ML UNIT SQ SCH ×5 (00:11→21:12)
[2020-11-20] MEDS: oxyCODONE HCL 5 MG TABLET PO PRN ×4 (01:11→16:48)
[2020-11-20] MEDS: 0.9 % SODIUM CHLORIDE 10 ML SYRINGE IV SCH ×3 (04:59→22:24)
[2020-11-20] MEDS: PANTOPRAZOLE 40 MG TABLET PO SCH ×2 (07:15→16:49)
[2020-11-20 07:33] LABS: Basophils # (Auto) 0.08 K/mcL (0.00-0.20); Basophils % (Auto) 0.7 % (0.0-2.0); Eosinophils # (Auto) 0.18 K/mcL (0.00-0.70); Eosinophils % (Auto) 1.5 % (0.0-7.0); Hematocrit 30.7 % (36.0-48.0); Hemoglobin 9.8 g/dL (12.0-15.0); Lymphocytes # (Auto) 1.62 K/mcL (1.50-4.80); Lymphocytes % (Auto) 13.9 % (15.0-49.0); Mean Cell Volume 84.6 fL (80.0-100.0); Mean Corpuscular HGB Conc 31.9 g/dL (31.0-36.0); Neutrophils % (Auto) 77.9 % (38.0-78.0); Platelet Count 239 K/mcL (140-440); RBC 3.63 M/mcL (4.00-5.20); Red Cell Distribution Width 15.4 % (11.5-14.5); WBC 11.7 K/mcL (4.5-11.0)
[2020-11-20] MEDS: DOCUSATE SODIUM 100 MG CAPSULE PO SCH ×2 (09:10→21:02)
[2020-11-20] MEDS: AMITRIPTYLINE 25 MG TABLET PO SCH (09:11)
--- NOTE | 2020-11-20 11:09 | Internal Med Progress Note ---
SUBJECTIVE Subjective Patient information: Note initiated : 11/20/20 at 11:07 am Service Date, if different from initiated Date: [] Patient: Masha Berger a 65 y/o F admitted on 11/14/20 for ground level fall. Chief Complaint: [] Interval history: Ms. Berger is a 65 year old F with type 2 diabetes mellitus, insulin-dependent, mixed dyslipidemia, recent right hip fracture status post ORIF, presenting with fall and refracturing of her right femur. Patient had an episode for 2 and half weeks ago status post right hip/femur ORIF. She was doing well after the surgery until last night when she sustained another fall at home when she was walking and all of a sudden her legs just gave out. She denies any loss of consciousness. She was taken back to our hospital ED and x- ray of the hip and right leg shows displaced fracture of the right femoral diaphysis at the level of the prosthetic femoral stem. She is currently complaining of 10 out of 10, constant, sharp pain localized in her right lateral thigh. Denies any shortness of breath or chest pain. Denies any lethargy or confusions. 11/15-overnight distended abdomen with multiple episodes of emesis. NG tube placed with over 2000 cc bilious output. Abdominal imaging reveals ileus pa ttern. Hemoglobin down to 7.9. Started on PPI due to blood-tinged gastric aspirate. Surgery today. Repeat hemoglobin down to 7.4. 2 units PRBC transfusion ordered. Will review postop. Family at bedside. Discussed plan of treatment. 11/16- Ms. Berger is a 65 year old F wit Patient postop day 2. Hemoglobin gradually downtrending down to 7.2. Additional 2 units blood transfusion. On IV PPI. Confused Head CT ordered. and disoriented this morning. Surgery consulted for evaluation of ileus/upper GI bleed. NG tube draining mixed bile and bloody aspirate 11/17-patient refused morning blood draws however responding well to diuretics. Over 2000 cc net negative in the last 6 hours. Feeling better. Remains intermittently confused. Son at bedside. No NG output. Start clears and clamp NG. No overnight fever chills. CHF on chest imaging responding to diuretics. Stable labs and hemodynamics. Currently on room air. 11/18-patient doing a lot better. Mentation improved. Status post upper endoscopy/colonoscopy. Inadequate prep and will need repeat colonoscopy in 6 to 8 weeks, no active ulcer or GI bleed noted upper endoscopy. Stable labs and hemodynamics. Hemoglobin is 8.9, continue physical therapy. Anticipate discharge to SNF. Case management coordinating. 11/19-patient doing a lot better. Son at bedside. Ongoing therapies. Mentation much improved. Pain improved. Tolerating diet. Anticipate SNF transfer on Saturday. Continues to recover. Stable labs and hemodynamics. Hemoglobin 9.2. 11/20-patient doing dramatically better. Tolerating diet. No further GI bleed. Hemoglobin 9.8. Diuresing well. On room air. Tolerating physical therapy and able to bear weight. Son at bedside. No active concerns. Mentation back to normal. Anticipate SNF transfer in 24 hours. Constitutional Vitals: Vital Signs Temp Pulse Resp BP Pulse Ox 97.8 F 83 18 162/89 94 11/20/20 07:20 11/20/20 07:20 11/20/20 07:20 11/20/20 07:20 11/20/20 07:20 Period Temp Pulse Resp BP Sys/Persaud Pulse Ox Last 24 Hr 97.8 F-98.5 F 73-86 12-18 119-162/66-89 93-97 Intake and Output 11/19/20 11/20/20 11/20/20 21:59 05:59 13:59 Intake Total 520 Output Total 303 202 2 Balance -303 318 -2 Weight 84.958 kg Alert oriented Nonlabored breathing No anxiety Nondistended abdomen Intake & Output: Intake & Output 11/19/20 11/20/20 11/20/20 21:59 05:59 13:59 Intake Total 520 Output Total 303 202 2 Balance -303 318 -2 Weight 84.958 kg Intake: Oral 520 Output: Void Amount 300 200 # of times incontinent of urine 3 2 2 Other: Meal Breakfast Percent of Meal Consumed 10 Feeding Ability Assist with Tray Set Up Urine Appearance Clear Urine Color Bright Yellow Dark Yellow Stool Size Small Smear Stool Color Brown Brown Stool Consistency Loose Dry and Hard # Voids 2 1 # of times incontinent of 1 Bowels OBJ DATA Labs CBC & Chem 7: 11/20/20 05:54 11/15/20 06:24 Labs: Abnormal Lab Results 11/20/20 11/19/20 11/18/20 05:54 06:02 06:34 WBC 11.7 H 11.6 H RBC 3.63 L 3.43 L 3.36 L Hgb 9.8 L 9.2 L 8.9 L Hct 30.7 L 28.2 L 28.1 L RDW 15.4 H 15.5 H 15.9 H Neut % (Auto) 82.1 H Lymph % (Auto) 13.9 L 11.9 L Lymph # (Auto) 1.38 L Absolute Neutrophils 9.10 H 9.51 H Meds: Medications Acetaminophen (Acetaminophen 325 Mg Tablet) 650 mg PO Q6HP PRN; Protocol PRN Reason: Per Pain Protocol/Fever > 101 Last Admin: 11/19/20 20:12 Dose: 650 mg Documented by: Amitriptyline HCl (Amitriptyline 25 Mg Tablet) 50 mg PO DAILY [facility] Last Admin: 11/20/20 09:11 Dose: 50 mg Documented by: Atorvastatin Calcium (Atorvastatin 20 Mg Tablet) 20 mg PO QHS [facility] Last Admin: 11/19/20 20:12 Dose: 20 mg Documented by: Bisacodyl (Bisacodyl 10 Mg Supp.Rect) 10 mg [place] Q2-3DAYS PRN PRN Reason: Constipation Dextrose (Dextrose 50% 50 Ml Vial) 0 ml IV UD PRN PRN Reason: Hypoglycemia Diagnostic Test (Pha) (Accu-Chek 1 Each Strip) 1 each FS [facility] Last Admin: 11/20/20 07:15 Dose: 1 each Documented by: Docusate Sodium (Docusate Sodium 100 Mg Capsule) 100 mg PO BID [facility] Last Admin: 11/20/20 09:10 Dose: 100 mg Documented by: Glucose (Dextrose 31 Gm Oral.Susp) 15 gm PO PRN PRN PRN Reason: Hypoglycemia Insulin Human Lispro (Insulin Lispro 1 Unit/0.01 Ml Unit) 0 unit SQ [facility]; Protocol Last Admin: 11/20/20 07:14 Dose: 1 unit Documented by: Magnesium Hydroxide (Magnesium Hydroxide 30 Ml Oral.Susp) 30 ml PO BIDP PRN PRN Reason: Constipation Ondansetron HCl (Ondansetron 4 Mg/2 Ml Vial) 4 mg IV Q6HP PRN PRN Reason: Nausea And Vomiting Last Admin: 11/18/20 00:17 Dose: 4 mg Documented by: Oxycodone HCl (Oxycodone Hcl 5 Mg Tablet) 5 mg PO Q4HP PRN; Protocol PRN Reason: Per Pain Protocol Last Admin: 11/20/20 05:40 Dose: 5 mg Documented by: Pantoprazole Sodium (Pantoprazole 40 Mg Tablet) 40 mg PO BIDAC [facility] Last Admin: 11/20/20 07:15 Dose: 40 mg Documented by: Polyethylene Glycol (Polyethylene Glycol 3350 17 Gm Packet) 17 gm PO DAILYP PRN PRN Reason: Constipation Promethazine HCl (Promethazine 25 Mg/Ml Vial) 12.5 mg IV Q6HP PRN PRN Reason: Nausea And Vomiting Last Admin: 11/14/20 23:20 Dose: 12.5 mg Documented by: Senna (Sennosides 1 Tablet) 2 tab PO HS [facility] Last Admin: 11/19/20 20:12 Dose: 2 tab Documented by: Sodium Biphosphate/Sodium Phosphate (Fleets Adult Enema) 1 dose [place] Q3-4DAYS PRN PRN Reason: Constipation Sodium Chloride (0.9 % Sodium Chloride 10 Ml Syringe) 10 ml IV Q8 [facility] Last Admin: 11/20/20 04:59 Dose: Not Given Documented by: Throat Lozenges (Benzocaine/Menthol 1 Lozenge) 1 lozenge PO PRN PRN PRN Reason: Sore Throat Tizanidine HCl (Tizanidine 4 Mg Tablet) 4 mg PO Q6HP PRN PRN Reason: muscle spasticity Last Admin: 11/19/20 20:11 Dose: 4 mg Documented by: Trazodone HCl (Trazodone Hcl 50 Mg Tablet) 50 mg PO HSP PRN PRN Reason: Insomnia Last Admin: 11/19/20 21:43 Dose: 50 mg Documented by: A/P Narrative A/P Narrative: * Right femur fracture/fall-postop day 5. Managed per orthopedics including pain management/postop therapies , dressing changes and weightbearing * Ileus/recurrent nausea clinical resolution noted. Status post upper endoscopy. NG discontinued. Advancing diet as tolerated * Hospital-acquired delirium-clinically resolved * Acute blood loss anemia status post 4 units PRBC. Hemoglobin 9.8. * Upper GI bleed status post endoscopy with no evidence of active bleed. Continuing PPI * Mild CHF on chest imaging-secondary to volume overload from crystalloid . Resolved with diuresis * Type II DM continue sliding scale insulin, CCD * Hyperlipidemia continue statin * History of chronic pain continue prior home medications postop * Prophylaxis SCDs * Full code Plan * Diet advancement as tolerated * Twice daily PPI * Pre-existing medical condition management home medications * Post hip fracture care per orthopedics along with early mobilization/PT OT * SNF transfer a.m. Time Spent With Patient Time: Total time spent is greater than 50% in coordination of care (as documented) at patient's floor/unit and/or counseling patient: QUALITY Stroke Symptom Onset Unknown: No VTE Deep Vein Thrombosis/Pulmonary Embolism Present on Admission: No
[2020-11-20] MEDS: tiZANidine 4 MG TABLET PO PRN (21:02)
[2020-11-20] MEDS: ATORVASTATIN 20 MG TABLET PO SCH (21:02)
[2020-11-20] MEDS: traZODone HCL 50 MG TABLET PO PRN (21:02)
[2020-11-20] MEDS: SENNOSIDES 1 TABLET PO SCH (21:02)
[2020-11-21] MEDS: oxyCODONE HCL 5 MG TABLET PO PRN ×5 (00:58→21:41)
[2020-11-21] MEDS: 0.9 % SODIUM CHLORIDE 10 ML SYRINGE IV SCH ×3 (04:46→21:59)
[2020-11-21 07:48] LABS: Basophils # (Auto) 0.07 K/mcL (0.00-0.20); Basophils % (Auto) 0.6 % (0.0-2.0); Eosinophils # (Auto) 0.28 K/mcL (0.00-0.70); Eosinophils % (Auto) 2.6 % (0.0-7.0); Hematocrit 30.6 % (36.0-48.0); Hemoglobin 9.4 g/dL (12.0-15.0); Lymphocytes # (Auto) 1.74 K/mcL (1.50-4.80); Lymphocytes % (Auto) 15.9 % (15.0-49.0); Mean Cell Volume 84.5 fL (80.0-100.0); Mean Corpuscular HGB Conc 30.7 g/dL (31.0-36.0); Mean Platelet Volume 9.1 fL (7.4-10.4); Monocytes # (Auto) 0.62 K/mcL (0.10-0.90); Monocytes % (Auto) 5.7 % (1.0-12.0); Neutrophils % (Auto) 75.2 % (38.0-78.0); Platelet Count 268 K/mcL (140-440); RBC 3.62 M/mcL (4.00-5.20); Red Cell Distribution Width 15.5 % (11.5-14.5)
[2020-11-21] MEDS: PANTOPRAZOLE 40 MG TABLET PO SCH ×2 (08:07→17:07)
[2020-11-21] MEDS: AMITRIPTYLINE 25 MG TABLET PO SCH (08:07)
[2020-11-21] MEDS: INSULIN LISPRO 1 UNIT/0.01 ML UNIT SQ SCH ×4 (08:08→21:45)
[2020-11-21] MEDS: ACETAMINOPHEN 325 MG TABLET PO PRN (08:09)
[2020-11-21] MEDS: DOCUSATE SODIUM 100 MG CAPSULE PO SCH ×2 (12:49→21:41)
[2020-11-21] MEDS: traZODone HCL 50 MG TABLET PO PRN (21:41)
[2020-11-21] MEDS: ATORVASTATIN 20 MG TABLET PO SCH (21:42)
[2020-11-21] MEDS: SENNOSIDES 1 TABLET PO SCH (21:59)
[2020-11-22] MEDS: oxyCODONE HCL 5 MG TABLET PO PRN (05:52)
[2020-11-22] MEDS: PANTOPRAZOLE 40 MG TABLET PO SCH (07:17)
--- NOTE | 2020-11-22 07:34 | Orthopedic Progress Note ---
SUBJECTIVE Subjective Patient information: Note initiated : 11/22/20 at 7:33 am Service Date, if different from initiated Date: [] Patient: Masha Berger 65 y/o F admitted on 11/14/20 for ground level fall. Chief Complaint: [Pt is stable this morning on post operative day without any significant concerns or complaints. Patients vital signs have remained stable. Patients dressing is dry and is grossly intact from a neurovascular and motor standpoint. Patients 10 point ROS is otherwise negative. ] Constitutional Vitals: Vital Signs Temp Pulse Resp BP Pulse Ox 98.4 F 77 16 130/66 95 11/22/20 07:18 11/22/20 07:18 11/22/20 07:18 11/22/20 07:18 11/22/20 07:18 Period Temp Pulse Resp BP Sys/Persaud Pulse Ox Last 24 Hr 98.4 F-99.1 F 75-84 14-18 119-152/57-76 95-98 Intake and Output 11/21/20 11/22/20 11/22/20 21:59 05:59 13:59 Intake Total 1540 250 Output Total 401 Balance 1139 250 Weight 186 lb Intake & Output: Intake & Output 11/21/20 11/22/20 11/22/20 21:59 05:59 13:59 Intake Total 1540 250 Output Total 401 Balance 1139 250 Weight 186 lb Intake: Oral 1540 250 Output: Void Amount 400 # of times incontinent of urine 1 Other: Meal Dinner Percent of Meal Consumed 25% Feeding Ability Independent Stool Size Small Stool Color Brown Stool Consistency Liquid # Bowel Movements 1 Extremities Exam Extremities exam: Present normal capillary refill, normal inspection, Foot pink and warm and neurovascular intact OBJ DATA Labs CBC & Chem 7: 11/21/20 05:33 11/15/20 06:24 Labs: Abnormal Lab Results 11/21/20 11/20/20 11/19/20 05:33 05:54 06:02 WBC 12.0 H 11.7 H RBC 3.62 L 3.63 L 3.43 L Hgb 9.4 L 9.8 L 9.2 L Hct 30.6 L 30.7 L 28.2 L MCHC 30.7 L RDW 15.5 H 15.4 H 15.5 H Lymph % (Auto) 13.9 L Absolute Neutrophils 8.24 H 9.10 H Meds: Medications Acetaminophen (Acetaminophen 325 Mg Tablet) 650 mg PO Q6HP PRN; Protocol PRN Reason: Per Pain Protocol/Fever > 101 Last Admin: 11/21/20 08:09 Dose: 650 mg Documented by: Amitriptyline HCl (Amitriptyline 25 Mg Tablet) 50 mg PO DAILY [facility] Last Admin: 11/21/20 08:07 Dose: 50 mg Documented by: Atorvastatin Calcium (Atorvastatin 20 Mg Tablet) 20 mg PO QHS [facility] Last Admin: 11/21/20 21:42 Dose: 20 mg Documented by: Bisacodyl (Bisacodyl 10 Mg Supp.Rect) 10 mg [place] Q2-3DAYS PRN PRN Reason: Constipation Dextrose (Dextrose 50% 50 Ml Vial) 0 ml IV UD PRN PRN Reason: Hypoglycemia Diagnostic Test (Pha) (Accu-Chek 1 Each Strip) 1 each FS [facility] Last Admin: 11/22/20 07:17 Dose: 1 each Documented by: Docusate Sodium (Docusate Sodium 100 Mg Capsule) 100 mg PO BID [facility] Last Admin: 11/21/20 21:41 Dose: 100 mg Documented by: Glucose (Dextrose 31 Gm Oral.Susp) 15 gm PO PRN PRN PRN Reason: Hypoglycemia Insulin Human Lispro (Insulin Lispro 1 Unit/0.01 Ml Unit) 0 unit SQ [facility]; Protocol Last Admin: 11/21/20 21:45 Dose: 1 unit Documented by: Magnesium Hydroxide (Magnesium Hydroxide 30 Ml Oral.Susp) 30 ml PO BIDP PRN PRN Reason: Constipation Ondansetron HCl (Ondansetron 4 Mg/2 Ml Vial) 4 mg IV Q6HP PRN PRN Reason: Nausea And Vomiting Last Admin: 11/18/20 00:17 Dose: 4 mg Documented by: Oxycodone HCl (Oxycodone Hcl 5 Mg Tablet) 5 mg PO Q4HP PRN; Protocol PRN Reason: Per Pain Protocol Last Admin: 11/22/20 05:52 Dose: 5 mg Documented by: Pantoprazole [facility] ([facility] Mg [facility]) [facility] Last Admin: 11/22/20 07:17 Dose: 40 mg Documented by: Polyethylene Glycol (Polyethylene Glycol 3350 17 Gm Packet) 17 gm PO DAILYP PRN PRN Reason: Constipation Promethazine HCl (Promethazine 25 Mg/Ml Vial) 12.5 mg IV Q6HP PRN PRN Reason: Nausea And Vomiting Last Admin: 11/14/20 23:20 Dose: 12.5 mg Documented by: Senna (Sennosides 1 Tablet) 2 tab PO HS [facility] Last Admin: 11/21/20 21:59 Dose: Not Given Documented by: Sodium Biphosphate/Sodium Phosphate (Fleets Adult Enema) 1 dose [place] Q3-4DAYS PRN PRN Reason: Constipation Throat Lozenges (Benzocaine/Menthol 1 Lozenge) 1 lozenge PO PRN PRN PRN Reason: Sore Throat Tizanidine HCl (Tizanidine 4 Mg Tablet) 4 mg PO Q6HP PRN PRN Reason: muscle spasticity Last Admin: 11/20/20 21:02 Dose: 4 mg Documented by: Trazodone HCl (Trazodone Hcl 50 Mg Tablet) 50 mg PO HSP PRN PRN Reason: Insomnia Last Admin: 11/21/20 21:41 Dose: 50 mg Documented by: A/P Narrative A/P Narrative: The patient has been educated regarding dressing care, Physical Therapy recommendations, home exercises, restrictions, and follow up appointments. The patient has had all necessary DME prescribed. The patient has remained relatively stable during their hospital course. Pt has progressed freddie cker than expected and meets the criteria for early discharge per Physicial Therapy and our evaluation. Time Spent With Patient Time: Total time spent is greater than 50% in coordination of care (as documented) at patient's floor/unit and/or counseling patient: Total time spent with greater than 50% in coordination of care (as documented) at patient's floor/unit and/or counseling patient:: less than 15 minutes
--- NOTE | 2020-11-22 08:23 | Internal Med Progress Note ---
SUBJECTIVE Subjective Patient information: Note initiated : 11/21/20 at 11:21 am Service Date, if different from initiated Date: [] Patient: Masha Berger a 65 y/o F admitted on 11/14/20 for ground level fall. Chief Complaint: [] Interval history: Ms. Berger is a 65 year old F with type 2 diabetes mellitus, insulin-dependent, mixed dyslipidemia, recent right hip fracture status post ORIF, presenting with fall and refracturing of her right femur. Patient had an episode for 2 and half weeks ago status post right hip/femur ORIF. She was doing well after the surgery until last night when she sustained another fall at home when she was walking and all of a sudden her legs just gave out. She denies any loss of consciousness. She was taken back to our hospital ED and x- ray of the hip and right leg shows displaced fracture of the right femoral diaphysis at the level of the prosthetic femoral stem. She is currently complaining of 10 out of 10, constant, sharp pain localized in her right lateral thigh. Denies any shortness of breath or chest pain. Denies any lethargy or confusions. 11/15-overnight distended abdomen with multiple episodes of emesis. NG tube placed with over 2000 cc bilious output. Abdominal imaging reveals ileus pa ttern. Hemoglobin down to 7.9. Started on PPI due to blood-tinged gastric aspirate. Surgery today. Repeat hemoglobin down to 7.4. 2 units PRBC transfusion ordered. Will review postop. Family at bedside. Discussed plan of treatment. 11/16- Ms. Berger is a 65 year old F wit Patient postop day 2. Hemoglobin gradually downtrending down to 7.2. Additional 2 units blood transfusion. On IV PPI. Confused Head CT ordered. and disoriented this morning. Surgery consulted for evaluation of ileus/upper GI bleed. NG tube draining mixed bile and bloody aspirate 11/17-patient refused morning blood draws however responding well to diuretics. Over 2000 cc net negative in the last 6 hours. Feeling better. Remains intermittently confused. Son at bedside. No NG output. Start clears and clamp NG. No overnight fever chills. CHF on chest imaging responding to diuretics. Stable labs and hemodynamics. Currently on room air. 11/18-patient doing a lot better. Mentation improved. Status post upper endoscopy/colonoscopy. Inadequate prep and will need repeat colonoscopy in 6 to 8 weeks, no active ulcer or GI bleed noted upper endoscopy. Stable labs and hemodynamics. Hemoglobin is 8.9, continue physical therapy. Anticipate discharge to SNF. Case management coordinating. 11/19-patient doing a lot better. Son at bedside. Ongoing therapies. Mentation much improved. Pain improved. Tolerating diet. Anticipate SNF transfer on Saturday. Continues to recover. Stable labs and hemodynamics. Hemoglobin 9.2. 11/20-patient doing dramatically better. Tolerating diet. No further GI bleed. Hemoglobin 9.8. Diuresing well. On room air. Tolerating physical therapy and able to bear weight. Son at bedside. No active concerns. Mentation back to normal. Anticipate SNF transfer in 24 hours. 11/21-patient doing well. No overnight events. Awaiting transfer. No fever chills nausea vomiting no concerns per nursing staff. Tolerating diet advancement, ambulating . No significant postoperative pain. Continue therapies as tolerated. Constitutional Vitals: Vital Signs Temp Pulse Resp BP Pulse Ox 98.4 F 77 16 130/66 95 11/22/20 07:18 11/22/20 07:18 11/22/20 07:18 11/22/20 07:18 11/22/20 07:18 Period Temp Pulse Resp BP Sys/Persaud Pulse Ox Last 24 Hr 98.4 F-99.1 F 75-84 14-18 119-152/57-75 95-98 Intake and Output 11/21/20 11/22/20 11/22/20 21:59 05:59 13:59 Intake Total 1540 250 Output Total 401 Balance 1139 250 Weight 84.368 kg Alert oriented Nonlabored breathing No anxiety Ambulating Intake & Output: Intake & Output 11/21/20 11/22/20 11/22/20 21:59 05:59 13:59 Intake Total 1540 250 Output Total 401 Balance 1139 250 Weight 84.368 kg Intake: Oral 1540 250 Output: Void Amount 400 # of times incontinent of urine 1 Other: Meal Dinner Percent of Meal Consumed 25% Feeding Ability Independent Stool Size Small Stool Color Brown Stool Consistency Liquid # Bowel Movements 1 OBJ DATA Labs CBC & Chem 7: 11/21/20 05:33 11/15/20 06:24 Labs: Abnormal Lab Results 11/21/20 11/20/20 05:33 05:54 WBC 12.0 H 11.7 H RBC 3.62 L 3.63 L Hgb 9.4 L 9.8 L Hct 30.6 L 30.7 L MCHC 30.7 L RDW 15.5 H 15.4 H Lymph % (Auto) 13.9 L Absolute Neutrophils 8.24 H 9.10 H Meds: Medications Acetaminophen (Acetaminophen 325 Mg Tablet) 650 mg PO Q6HP PRN; Protocol PRN Reason: Per Pain Protocol/Fever > 101 Last Admin: 11/21/20 08:09 Dose: 650 mg Documented by: Amitriptyline HCl (Amitriptyline 25 Mg Tablet) 50 mg PO DAILY [facility] Last Admin: 11/21/20 08:07 Dose: 50 mg Documented by: Atorvastatin Calcium (Atorvastatin 20 Mg Tablet) 20 mg PO QHS [facility] Last Admin: 11/21/20 21:42 Dose: 20 mg Documented by: Bisacodyl (Bisacodyl 10 Mg Supp.Rect) 10 mg [place] Q2-3DAYS PRN PRN Reason: Constipation Dextrose (Dextrose 50% 50 Ml Vial) 0 ml IV UD PRN PRN Reason: Hypoglycemia Diagnostic Test (Pha) (Accu-Chek 1 Each Strip) 1 each FS [facility] Last Admin: 11/22/20 07:17 Dose: 1 each Documented by: Docusate Sodium (Docusate Sodium 100 Mg Capsule) 100 mg PO BID [facility] Last Admin: 11/21/20 21:41 Dose: 100 mg Documented by: Glucose (Dextrose 31 Gm Oral.Susp) 15 gm PO PRN PRN PRN Reason: Hypoglycemia Insulin Human Lispro (Insulin Lispro 1 Unit/0.01 Ml Unit) 0 unit SQ [facility]; Protocol Last Admin: 11/21/20 21:45 Dose: 1 unit Documented by: Magnesium Hydroxide (Magnesium Hydroxide 30 Ml Oral.Susp) 30 ml PO BIDP PRN PRN Reason: Constipation Ondansetron HCl (Ondansetron 4 Mg/2 Ml Vial) 4 mg IV Q6HP PRN PRN Reason: Nausea And Vomiting Last Admin: 11/18/20 00:17 Dose: 4 mg Documented by: Oxycodone HCl (Oxycodone Hcl 5 Mg Tablet) 5 mg PO Q4HP PRN; Protocol PRN Reason: Per Pain Protocol Last Admin: 11/22/20 05:52 Dose: 5 mg Documented by: Pantoprazole Sodium (Pantoprazole 40 Mg Tablet) 40 mg PO BIDAC [facility] Last Admin: 11/22/20 07:17 Dose: 40 mg Documented by: Polyethylene Glycol (Polyethylene Glycol 3350 17 Gm Packet) 17 gm PO DAILYP PRN PRN Reason: Constipation Promethazine HCl (Promethazine 25 Mg/Ml Vial) 12.5 mg IV Q6HP PRN PRN Reason: Nausea And Vomiting Last Admin: 11/14/20 23:20 Dose: 12.5 mg Documented by: Senna (Sennosides 1 Tablet) 2 tab PO HS [facility] Last Admin: 11/21/20 21:59 Dose: Not Given Documented by: Sodium Biphosphate/Sodium Phosphate (Fleets Adult Enema) 1 dose [place] Q3-4DAYS PRN PRN Reason: Constipation Throat Lozenges (Benzocaine/Menthol 1 Lozenge) 1 lozenge PO PRN PRN PRN Reason: Sore Throat Tizanidine HCl (Tizanidine 4 Mg Tablet) 4 mg PO Q6HP PRN PRN Reason: muscle spasticity Last Admin: 11/20/20 21:02 Dose: 4 mg Documented by: Trazodone HCl (Trazodone Hcl 50 Mg Tablet) 50 mg PO HSP PRN PRN Reason: Insomnia Last Admin: 11/21/20 21:41 Dose: 50 mg Documented by: A/P Narrative A/P Narrative: * Right femur fracture/fall-postop day 6. Managed per orthopedics including pain management/postop therapies , dressing changes and weightbearing. Transition to SNF in 24 hours * Ileus/recurrent nausea clinical resolution noted. Status post upper endosco py. NG discontinued. Advancing diet as tolerated * Hospital-acquired delirium-clinically resolved * Acute blood loss anemia status post 4 units PRBC. Hemoglobin 9.8. * Upper GI bleed status post endoscopy with no evidence of active bleed. Continuing PPI * Mild CHF on chest imaging-secondary to volume overload from crystalloid . Resolved with diuresis * Type II DM continue sliding scale insulin, CCD * Hyperlipidemia continue statin * History of chronic pain continue prior home medications postop * Prophylaxis SCDs * Full code Plan * Diet advancement as tolerated * Continue twice daily PPI * Pre-existing medical condition management home medications * Post hip fracture care per orthopedics along with early mobilization/PT OT * SNF transfer coordination per case management Time Spent With Patient Time: Total time spent is greater than 50% in coordination of care (as documented) at patient's floor/unit and/or counseling patient: QUALITY Stroke Symptom Onset Unknown: No VTE Deep Vein Thrombosis/Pulmonary Embolism Present on Admission: No
--- NOTE | 2020-11-22 08:24 | Discharge Summary ---
Discharge Provider Provider Patient information: Note initiated : 11/22/20 at 8:23 am Service Date, if different from initiated Date: [] Patient: Masha Berger a 65 y/o F admitted on 11/14/20 for ground level fall. Discharge diagnosis * Right femur fracture/fall-postop day 7. Managed per orthopedics including pain management/postop therapies , dressing changes and weightbearing. Transition to SNF today. In the setting of GI bleed recommend continuing Lovenox 40 mg subcu daily and stop if evidence of bleed. Closely monitor for signs of bleeding and drop in hematocrit. Recommend every other day hemoglobin check by SNF physician * Ileus/recurrent nausea clinical resolution noted. Status post upper endoscopy. NG discontinued. Advancing diet as tolerated * Hospital-acquired delirium-clinically resolved * Acute blood loss anemia status post 4 units PRBC. Hemoglobin 9.8. Recommend every other day hemoglobin check by SNF physician * Upper GI bleed status post endoscopy with no evidence of active bleed. Continuing PPI * Mild CHF on chest imaging-secondary to volume overload from crystalloid . Resolved with diuresis * Type II DM continue sliding scale insulin, CCD * Hyperlipidemia continue statin * History of chronic pain continue prior home medications postop Brief hospital course Ms. Berger is a 65 year old F with type 2 diabetes mellitus, insulin-dependent, mixed dyslipidemia, recent right hip fracture status post ORIF, presenting with fall and refracturing of her right femur. Patient had an episode for 2 and half weeks ago status post right hip/femur ORIF. She was doing well after the surgery until last night when she sustained another fall at home when she was walking and all of a sudden her legs just gave out. She denies any loss of consciousness. She was taken back to our hospital ED and x-ray of the hip and right leg shows displaced fracture of the right femoral diaphysis at the level of the prosthetic femoral stem. She is currently complaining of 10 out of 10, constant, sharp pain localized in her right lateral thigh. Denies any shortness of breath or chest pain. Denies any lethargy or confusions. 5/4-overnight distended abdomen with multiple episodes of emesis. NG tube placed with over 2000 cc bilious output. Abdominal imaging reveals ileus pattern. Hemoglobin down to 7.9. Started on PPI due to blood-tinged gastric aspirate. Surgery today. Repeat hemoglobin down to 7.4. 2 units PRBC transfusion ordered. Will review postop. Family at bedside. Discussed plan of treatment. 11/16- Ms. Berger is a 65 year old F wit Patient postop day 2. Hemoglobin gradually downtrending down to 7.2. Additional 2 units blood transfusion. On IV PPI. Confused Head CT ordered. and disoriented this morning. Surgery consulted for evaluation of ileus/upper GI bleed. NG tube draining mixed bile and bloody aspirate 11/17-patient refused morning blood draws however responding well to diuretics. Over 2000 cc net negative in the last 6 hours. Feeling better. Remains intermittently confused. Son at bedside. No NG output. Start clears and clamp NG. No overnight fever chills. CHF on chest imaging responding to diuretics. Stable labs and hemodynamics. Currently on room air. 11/18-patient doing a lot better. Mentation improved. Status post upper endoscopy/colonoscopy. Inadequate prep and will need repeat colonoscopy in 6 to 8 weeks, no active ulcer or GI bleed noted upper endoscopy. Stable labs and hemodynamics. Hemoglobin is 8.9, continue physical therapy. Anticipate discharge to SNF. Case management coordinating. 11/19-patient doing a lot better. Son at bedside. Ongoing therapies. Mentation much improved. Pain improved. Tolerating diet. Anticipate SNF transfer on Saturday. Continues to recover. Stable labs and hemodynamics. Hemoglobin 9.2. 11/20-patient doing dramatically better. Tolerating diet. No further GI bleed. Hemoglobin 9.8. Diuresing well. On room air. Tolerating physical therapy and able to bear weight. Son at bedside. No active concerns. Mentation back to normal. Anticipate SNF transfer in 24 hours. 11/21-patient doing well. No overnight events. Awaiting transfer. No fever chills nausea vomiting no concerns per nursing staff. Tolerating diet advancement, ambulating . No significant postoperative pain. Continue therapies as tolerated. 11/22-patient doing well. No fever chills. Discharging to SNF with continued posthospitalization rehab. Continue twice daily PPI. DVT continue twice daily Lovenox for 10 to 14 days with close monitoring of hemoglobin every other day along with monitoring for evidence of GI bleed at SNF. Date of admission: 11/14/20 03:04 Discharge date: 11/22/20 Primary care physician: Mala Armas Consults: 11/14/20 Consult to Physician [CONS] Stat Comment: Consulting Provider: Neptali Antunez Reason For Exam: Physician to Consult 11/14/20 04:09 Consult to Physician [CONS] Routine Comment: Consulting Provider: Scot Tipton Reason For Exam: Physician to Consult Discharge Meds Discharge Medications Home Medications insulin lispro [Humalog KwikPen Insulin] 12 unit SUBCUT DAILY@1230 08/17/20 [History Confirmed 11/14/20 Last Taken 11/13/20 12:30 12 units] insulin lispro [Humalog KwikPen Insulin] 20 unit SUB-Q BID@08,1730 08/17/20 [History Confirmed 11/14/20 Last Taken 11/13/20 15:00 20 units] Lantus Solostar U-100 Insulin 42 unit SUBCUT DAILY 10/26/20 [History Confirmed 11/14/20 Last Taken 11/13/20 08:00 42 units] amitriptyline 50 mg PO DAILY 10/26/20 [History Confirmed 11/14/20 Last Taken 11/13/20 20:30 50 mg] aspirin 81 mg PO BID #60 tab 10/27/20 [Rx Confirmed 11/14/20 Last Taken 11/06/20 20:00 81 mg] atorvastatin 20 mg tablet 20 mg PO QHS #90 tab 11/03/20 [Rx Confirmed 11/14/20 Last Taken 11/13/20 20:30 20 mg] tizanidine 4 mg tablet 4 mg PO Q6HP PRN #60 tab 11/08/20 [Rx Confirmed 11/14/20 Last Taken 11/13/20 20:00 4 mg] gabapentin 1,200 mg PO TID PRN 11/14/20 [History Confirmed 11/14/20 Last Taken 11/13/20 20:00 1200 mg] enoxaparin [Lovenox] 40 mg SUBCUT Q12H #4 ml 11/22/20 [Rx Last Taken Unknown] oxycodone 10 mg PO Q4H PRN #7 tab 11/22/20 [Rx Last Taken Unknown] pantoprazole 40 mg PO BIDAC #30 tab 11/22/20 [Rx Last Taken Unknown] COURSE Hospital Course Hospital course: . Discharge diagnosis: . Time Spent with Patient Time attestation: Total time spent providing and/or coordinating discharge services: EXAM Constitutional Vitals: Temp Pulse Resp BP Pulse Ox 98.4 F 77 16 130/66 95 11/22/20 07:18 11/22/20 07:18 11/22/20 07:18 11/22/20 07:18 11/22/20 07:18 Discharge Plan Patient/Caregiver Discharge Instructions Activity: ambulate only with your walker and increase activity as tolerated Diet: Consistent Carbohydrate Activity Restrictions/Additional Instructions: Continue diet advancement as tolerated Therapies/weightbearing as per orthopedics Post hip DVT prophylaxis per orthopedics Return to ER if worsening fever chills shortness of breath bleeding noted Prescriptions: New pantoprazole 40 mg Tablet,Delayed Release (Dr/Ec) 40 mg PO BIDAC Qty: 30 RF: 0 enoxaparin [Lovenox] 40 mg/0.4 mL syringe 40 mg subcut Q12H Qty: 4 RF: 0 Continued atorvastatin 20 mg tablet 20 mg PO QHS Qty: 90 RF: 0 tizanidine 4 mg tablet 4 mg PO Q6HP PRN (Reason: muscle spasticity) Qty: 60 RF: 2 insulin lispro [Humalog KwikPen Insulin] 100 unit/mL Insulin Pen 12 unit SUBCUT DAILY@1230 RF: 0 insulin lispro [Humalog KwikPen Insulin] 100 unit/mL insulin pen 20 unit SUB-Q BID@08,1730 RF: 0 amitriptyline 50 mg tablet 50 mg PO DAILY RF: 0 Lantus Solostar U-100 Insulin 100 unit/mL (3 mL) insulin pen 42 unit SUBCUT DAILY RF: 0 aspirin 81 mg tablet,delayed release (DR/EC) 81 mg PO BID Qty: 60 RF: 0 gabapentin 600 mg tablet 1,200 mg PO TID PRN (Reason: Pain) RF: 0 oxycodone 10 mg tablet 10 mg PO Q4H PRN (Reason: pain) Qty: 7 RF: 0 Follow Up Plan Follow up with: Brien Gandhi PA-C [Physician [employer] Room Attendant] - 11/29/20 (Please call and schedule a post surgical follow up to be seen 10 days from November 19.) Mala Armas ARNP [Primary Care Provider] - Patient Disposition: Xfer SNF Rehab Potential: Fair I certify that the patient requires SNF services: Yes Overall status at discharge: patient is progressing back to baseline Discharge Orders: Discharge Order (Routine); Ordered 11/22/20 Ordered By: Gary LAMAS VTE Deep Vein Thrombosis/Pulmonary Embolism Present on Admission: No
[2020-11-22] MEDS: INSULIN LISPRO 1 UNIT/0.01 ML UNIT SQ SCH (08:31)
[2020-11-22] MEDS: AMITRIPTYLINE 25 MG TABLET PO SCH (08:31)
[2020-11-22] MEDS: DOCUSATE SODIUM 100 MG CAPSULE PO SCH (08:32)
== END 2020-11-22 10:35 | DRG 481 ==
LOC: ED 01:11 → MEDSUR 03:04
PROVIDERS: ADMIT Internal Medicine; ATTEND Internal Medicine